=== PATIENT | male | born 1950 ===

== ENCOUNTER 2017-12-11 06:06 | Inpatient (IN) | payer MEDICARE ==
[2017-12-01 09:56] VITALS: BMI 24.9
[2017-12-11] MEDS ORDERED: Lactated Ringer's 1,000 ML IV ONE ×3 (07:20→13:57)
[2017-12-11] MEDS ORDERED: metroNIDAZOLE 500mg/100ml NS 0 ML IVPB ONE (08:04)
[2017-12-11] MEDS ORDERED: Bupivacaine 0.5% Inj(30mL) ONE (08:04)
[2017-12-11] MEDS ORDERED: Propofol 10 mg/ml Inj (20 ML) ONE (09:14)
[2017-12-11] MEDS ORDERED: Midazolam 2 MG/2 ML VIAL ONE (09:14)
[2017-12-11] MEDS ORDERED: Succinylcholine 200 mg/10 ml Inj IV ONE (09:16)
[2017-12-11] MEDS ORDERED: Neostigmine 1:1000 (1 mg/ml) Inj ONE (09:16)
[2017-12-11] MEDS ORDERED: Rocuronium 10 mg/ml (5 ml) ONE (09:16)
--- NOTE | 2017-12-11 09:23 | CP.PCM.HP ---
History of Present Illness - History of Present Illness History of Present Illness: 67 yo with adenocarcinoma of the cecum Present on Admission - Present on Admission Any Indicators Present on Admission: No History of DVT/PE: No History of Uncontrolled Diabetes: No Urinary Catheter: No Decubitus Ulcer Present: No Past Patient History - Past Medical History & Family History Past Medical History?: Yes - Past Social History Smoking Status: Former Smoker - CARDIAC Hx Cardiac Disorders: Yes Hx Hypercholesterolemia: Yes (dyslipidemia) Hx Hypertension: Yes - PULMONARY Hx Respiratory Disorders: No - NEUROLOGICAL Hx Neurological Disorder: No - HEENT Hx HEENT Problems: No Hx Cataracts: Yes (L) - RENAL Hx Chronic Kidney Disease: No - ENDOCRINE/METABOLIC Hx Endocrine Disorders: No - HEMATOLOGICAL/ONCOLOGICAL Hx Blood Disorders: Yes Hx Anemia: Yes Hx Cancer: Yes (colon) - INTEGUMENTARY Hx Dermatological Problems: No - MUSCULOSKELETAL/RHEUMATOLOGICAL Hx Musculoskeletal Disorders: No - GASTROINTESTINAL Hx Gastrointestinal Disorders: No - GENITOURINARY/GYNECOLOGICAL Hx Genitourinary Disorders: No - PSYCHIATRIC Hx Psychophysiologic Disorder: No - SURGICAL HISTORY Hx Surgeries: Yes Hx Cataract Extraction: Yes (jomar cataracts) Hx Eye Surgery: Yes Hx Herniorrhaphy: Yes (right inguinal) Other/Comment: prostate biopsy. Colonoscopy/endoscopy 11/13/17 - ANESTHESIA Hx Anesthesia: Yes Hx Anesthesia Reactions: No Hx Malignant Hyperthermia: No Has any member of the family had a problem w/ anesthesia?: No Meds Allergies/Adverse Reactions: Allergies Allergy/AdvReac Type Severity Reaction Status Date / Time No Known Allergies Allergy Verified 12/11/17 06:37 Results - Vital Signs Recent Vital Signs: Last Vital Signs Temp 98.3 F 12/11/17 07:23 Pulse 66 12/11/17 07:23 Resp 18 12/11/17 07:23 BP 107/62 12/11/17 07:23 Pulse Ox 96 12/11/17 07:23 - Labs Labs: Laboratory Results - last 24 hr 12/11/17 06:30 Blood Type O POSITIVE Antibody Screen Negative BBK History Checked No verified bt Assessment & Plan - Assessment and Plan (Free Text) Assessment: 67 yo with adenocarcinoma of the cecum medically cleared for surgery Plan: right colectomy , robotic - Date & Time Date: 12/11/17 Time: 09:24
[2017-12-11] MEDS ORDERED: Phenylephrine 10 mg/ml Inj ONE ×2 (09:50→09:51)
[2017-12-11] MEDS ORDERED: Bupivacaine 0.5% 50 ML IJ ONE (10:00)
[2017-12-11] MEDS ORDERED: Sodium Chloride 0.9% 1,000 ML IV ONE ×2 (10:10→13:57)
[2017-12-11] MEDS ORDERED: cefOXitin IV 1 gm in Dextrose 1 GM/50 ML BAG IVPB ONE (11:52)
[2017-12-11] MEDS ORDERED: Lactated Ringer's 500 ML IV ONE (13:30)
[2017-12-11] MEDS ORDERED: HYDROmorphone 0.5 mg/0.5 ml ISec IVP PRN (13:57)
[2017-12-11] MEDS ORDERED: Lactated Ringer's 1,000 ML IV SCH (14:00)
[2017-12-11] MEDS ORDERED: HYDROmorphone 0.5 mg/0.5 ml ISec ONE (14:05)
[2017-12-11] MEDS ORDERED: cefOXitin IV 1 gm in Dextrose 1 GM/50 ML BAG IVPB SCH (17:00)
[2017-12-11] MEDS: Sodium Chloride 0.9% 1,000 ML IV SCH ×3 (17:02→22:14)
[2017-12-11] MEDS: HYDROmorphone 0.5 mg/0.5 ml ISec IVP PRN (18:13)
[2017-12-11] MEDS: cefOXitin IV 1 gm in Dextrose 1 GM/50 ML BAG IVPB SCH (20:28)
[2017-12-12] MEDS: HYDROmorphone 0.5 mg/0.5 ml ISec IVP PRN ×5 (00:06→21:11)
[2017-12-12] MEDS: cefOXitin IV 1 gm in Dextrose 1 GM/50 ML BAG IVPB SCH ×3 (04:28→19:44)
[2017-12-12] MEDS: Sodium Chloride 0.9% 1,000 ML IV SCH ×2 (05:41→14:22)
--- NOTE | 2017-12-12 06:53 | CP.PCM.PN ---
Subjective - Date & Time of Evaluation Date of Evaluation: 12/12/17 Time of Evaluation: 06:35 - Subjective Subjective: General Surgery Note for Dr. Schmid Patient seen and examined at bedside. No acute event overnight. Patient is s/p robotic colectomy POD#1 for cecal mass. Patient states pain is controlled with medication. Denies fever/chills or nausea/vomiting. He has been NPO. He denies any flaus or BM. Patient is on 2L nasal cannula. Urine output was 625 cc over the last 12 hrs. Patient has no other complaints at this time. Objective - Vital Signs/Intake and Output Vital Signs (last 24 hours): Temp Pulse Resp BP Pulse Ox 98.9 F 78 18 94/60 L 94 L 12/12/17 05:00 12/12/17 05:00 12/12/17 05:00 12/12/17 05:00 12/12/17 05:00 Intake and Output: 12/11/17 12/12/17 18:59 06:59 Intake Total 3300 1500 Output Total 850 500 Balance 2450 1000 - Medications Medications: Current Medications Acetaminophen (Tylenol 325mg Tab) 650 mg PO Q6 PRN PRN Reason: Fever >100.4 F Heparin Sodium (Porcine) (Heparin) 5,000 units SC Q8 [facility] PRN Reason: Protocol Hydromorphone HCl (Dilaudid) 1 mg IVP Q4 PRN PRN Reason: Pain, severe (8-10) Last Admin: 12/12/17 05:33 Dose: 1 mg Sodium Chloride (Sodium Chloride 0.9%) 1,000 mls @ 125 mls/hr IV .Q8H [facility] Stop: 12/12/17 14:01 Last Admin: 12/12/17 05:41 Dose: 125 mls/hr Cefoxitin Sodium (Mefoxin Iv 1 Gm Duplex) 1 gm in 50 mls @ 50 mls/hr IVPB Q8H [facility] PRN Reason: Protocol Last Admin: 12/12/17 04:28 Dose: 50 mls/hr Ondansetron HCl (Zofran Inj) 4 mg IVP Q4 PRN PRN Reason: Nausea/Vomiting - Constitutional Appears: Non-toxic, No Acute Distress - Head Exam Head Exam: ATRAUMATIC, NORMOCEPHALIC - Eye Exam Eye Exam: EOMI, Normal appearance Pupil Exam: PERRL - ENT Exam ENT Exam: Mucous Membranes Moist - Respiratory Exam Respiratory Exam: NORMAL BREATHING PATTERN - Cardiovascular Exam Cardiovascular Exam: REGULAR RHYTHM - GI/Abdominal Exam GI & Abdominal Exam: Soft, Tenderness (mild near umbilicus and at incision sites ), Normal Bowel Sounds. absent: Distended, Firm, Guarding, Rigid, Rebound Additional comments: mild subcutaneous crepitus in right abdomen likely secondary to procedure surgical dressing dry and intact no evidence of bleeding - Extremities Exam Extremities Exam: Normal Capillary Refill - Back Exam Back Exam: absent: CVA tenderness (L), CVA tenderness (R) - Neurological Exam Neurological Exam: Alert, Awake, Oriented x3 - Psychiatric Exam Psychiatric exam: Normal Affect, Normal Mood - Skin Skin Exam: Dry, Intact, Normal Color, Warm Assessment and Plan - Assessment and Plan (Free Text) Assessment: 67 M s/p robotic colectomy for cecal mass POD#1 Plan: -CLD, ADAT -Continue IV fluids -IV antibiotics for full 24 hrs (DC at 20:00) -O2 via nasal cannula PRN -Pain control -Anti-emetics PRN -OOB to chair/Encourage Ambulation/Incentive Spirometer -PT/OT -Discussed with Dr. Sharmaine Sun PGY1
[2017-12-12 12:17] LABS: BASO % 0.2 % (0.0-2.0); HEMOGLOBIN 10.7 g/dL (12.0-18.0); LYMPH # 0.9 K/uL (1.0-4.3); LYMPH % 5.1 % (20.0-40.0); MEAN CORPUSCULAR HEMOGLOBIN 24.9 pg (27.0-31.0); MEAN CORPUSCULAR HGB CONC 31.9 g/dL (33.0-37.0); MEAN PLATELET VOLUME 9.2 fl (7.2-11.7); MONO # 0.7 K/uL (0.0-0.8); MONO % 3.8 % (0.0-10.0); NEUT % 90.9 % (50.0-75.0); PLATELET COUNT 205 K/uL (130-400); RBC 4.32 Mil/uL (4.40-5.90); RED CELL DISTRIBUTION WIDTH 22.2 % (11.5-14.5); WHITE BLOOD COUNT 17.7 K/uL (4.8-10.8)
[2017-12-12 12:34] LABS: ALB/GLOB RATIO 0.9 (1.0-2.1); ALBUMIN 2.9 g/dL (3.5-5.0); ALT/SGPT 24 U/L (21-72); AST/SGOT 26 U/L (17-59); BLOOD UREA NITROGEN 12 mg/dl (9-20); CALCIUM 8.4 mg/dL (8.4-10.2); GFR AFRICAN-AMERICAN > 60; GFR NON-AFRICAN AMERICAN > 60
[2017-12-12 14:23] LABS: ANISOCYTOSIS MODERATE; BANDS 7 % (0-2); LARGE PLATELETS PRESENT; LYMPHOCYTE 9 % (20-50); MONOCYTE 5 % (0-10); NEUTROPHIL 79 % (42-75); OVALOCYTES SLIGHT; PLATELET ESTIMATE NORMAL (NORMAL); POIKILOCYTOSIS SLIGHT; SCHISTOCYTES SLIGHT; TOTAL CELLS COUNTED 100
--- NOTE | 2017-12-12 14:49 | CP.PCM.CON ---
<Sebastián Brasher - Last Filed: 12/12/17 14:46> History of Present Illness - History of Present Illness History of Present Illness: HPI: 67 y/o man w/ pmh of HTN, BPH, and adenocarcinoma of the cecum seen on colonoscopy is s/p [place] (robotic) colectomy for adenocarcinoma of the cecum seen on colonoscopy 11/13/2017. Patient is POD#1. Patient tolerated the procedure well and is recovering appropriately. The patient is using incentive spirometer as directed. The patient reports pain at the surgical site relieved w/ medication. The patient denies headache, chest pain, SOB, nausea, vomiting, diarrhea, dysuria, or fever. PMD: Dr. Jason Mcknight PMH: HTN, BPH, and adenocarcinoma of the cecum seen on colonoscopy Meds: see med list Allergies: NKDA PSH: right inguinal hernia repair, bilateral cataracts Fam: denies Hx of cancer SOC: former smoker, quit >20 years ago, smoked 1-2 packs/day for 15 years, denies alcohol and drugs ROS: 12 points assessed and negative unless otherwise reported in HPI Review of Systems - Review of Systems All systems: reviewed and no additional remarkable complaints except - Constitutional Constitutional: absent: Chills, Fever, Headache - EENT Eyes: absent: Change in Vision - Cardiovascular Cardiovascular: absent: Chest Pain - Respiratory Respiratory: absent: Dyspnea - Gastrointestinal Gastrointestinal: As Per HPI, Abdominal Pain. absent: Diarrhea, Nausea, Vomiting - Genitourinary Genitourinary: absent: Dysuria - Integumentary Integumentary: absent: Rash Past Patient History - Past Medical History & Family History Past Medical History?: Yes - Past Social History Smoking Status: Former Smoker - CARDIAC Hx Cardiac Disorders: Yes Hx Hypercholesterolemia: Yes (dyslipidemia) Hx Hypertension: Yes - PULMONARY Hx Respiratory Disorders: No - NEUROLOGICAL Hx Neurological Disorder: No - HEENT Hx HEENT Problems: No Hx Cataracts: Yes (L) - RENAL Hx Chronic Kidney Disease: No - ENDOCRINE/METABOLIC Hx Endocrine Disorders: No - HEMATOLOGICAL/ONCOLOGICAL Hx Blood Disorders: Yes Hx Anemia: Yes Hx Cancer: Yes (colon) - INTEGUMENTARY Hx Dermatological Problems: No - MUSCULOSKELETAL/RHEUMATOLOGICAL Hx Musculoskeletal Disorders: No - GASTROINTESTINAL Hx Gastrointestinal Disorders: No - GENITOURINARY/GYNECOLOGICAL Hx Genitourinary Disorders: No - PSYCHIATRIC Hx Psychophysiologic Disorder: No - SURGICAL HISTORY Hx Surgeries: Yes Hx Cataract Extraction: Yes (jomar cataracts) Hx Eye Surgery: Yes Hx Herniorrhaphy: Yes (right inguinal) Other/Comment: prostate biopsy. Colonoscopy/endoscopy 11/13/17 - ANESTHESIA Hx Anesthesia: Yes Hx Anesthesia Reactions: No Hx Malignant Hyperthermia: No Has any member of the family had a problem w/ anesthesia?: No Meds Allergies/Adverse Reactions: Allergies Allergy/AdvReac Type Severity Reaction Status Date / Time No Known Allergies Allergy Verified 12/11/17 06:37 - Medications Medications: Current Medications Acetaminophen (Tylenol 325mg Tab) 650 mg PO Q6 PRN PRN Reason: Fever >100.4 F Heparin Sodium (Porcine) (Heparin) 5,000 units SC Q8 [facility] PRN Reason: Protocol Last Admin: 12/12/17 08:39 Dose: 5,000 units Hydromorphone HCl (Dilaudid) 1 mg IVP Q4 PRN PRN Reason: Pain, severe (8-10) Last Admin: 12/12/17 14:15 Dose: 1 mg Cefoxitin Sodium (Mefoxin Iv 1 Gm Duplex) 1 gm in 50 mls @ 50 mls/hr IVPB Q8H [facility] PRN Reason: Protocol Stop: 12/12/17 20:00 Last Admin: 12/12/17 14:02 Dose: 50 mls/hr Ondansetron HCl (Zofran Inj) 4 mg IVP Q4 PRN PRN Reason: Nausea/Vomiting Oxycodone/Acetaminophen (Percocet 5/325 Mg Tab) 1 tab PO Q4 PRN PRN Reason: Pain, moderate (4-7) Stop: 12/15/17 14:45 Physical Exam - Constitutional Appears: Non-toxic, No Acute Distress - Head Exam Head Exam: ATRAUMATIC, NORMAL INSPECTION, NORMOCEPHALIC - Eye Exam Eye Exam: Normal appearance - ENT Exam ENT Exam: Mucous Membranes Moist - Neck Exam Neck exam: Positive for: Full Rom. Negative for: Tenderness - Respiratory Exam Respiratory Exam: Clear to Auscultation Bilateral. absent: Accessory Muscle Use , Decreased Breath Sounds, Rales, Rhonchi, Wheezes, Respiratory Distress - Cardiovascular Exam Cardiovascular Exam: REGULAR RHYTHM. absent: Tachycardia - GI/Abdominal Exam GI & Abdominal Exam: Normal Bowel Sounds, Soft, Tenderness (at surgical sites). absent: Distended Additional comments: dressings c/d/i, no bleed - Extremities Exam Extremities exam: Negative for: calf tenderness, pedal edema, tenderness - Neurological Exam Neurological exam: Alert, Oriented x3 - Skin Skin Exam: Dry, Normal Color, Warm Results - Vital Signs Recent Vital Signs: Last Vital Signs Temp 98.3 F 12/12/17 12:00 Pulse 83 12/12/17 12:00 Resp 20 12/12/17 12:00 BP 103/63 12/12/17 12:00 Pulse Ox 93 L 12/12/17 12:00 - Labs Result Diagrams: 12/12/17 11:57 12/12/17 11:57 Labs: Laboratory Results - last 24 hr 12/12/17 12/12/17 11:57 11:57 WBC 17.7 H D RBC 4.32 L Hgb 10.7 L Hct 33.7 L MCV 78.0 L MCH 24.9 L MCHC 31.9 L RDW 22.2 H Plt Count 205 MPV 9.2 Neut % (Auto) 90.9 H Lymph % (Auto) 5.1 L [place] % (Auto) 3.8 Eos % (Auto) 0.0 Baso % (Auto) 0.2 Neut # (Auto) 16.0 H Lymph # (Auto) 0.9 L [place] # (Auto) 0.7 Eos # (Auto) 0.0 Baso # (Auto) 0.0 Neutrophils % (Manual) 79 H Band Neutrophils % 7 H Lymphocytes % (Manual) 9 L Monocytes % (Manual) 5 Platelet Estimate Normal Large Platelets Present Poikilocytosis (manual Slight Anisocytosis (manual) Moderate Ovalocytes Slight Schistocytes Slight Sodium 139 Potassium 4.4 Chloride 102 Carbon Dioxide 26 Anion Gap 15 BUN 12 Creatinine 0.9 Est GFR ( Amer) > 60 Est GFR (Non-Af Amer) > 60 Random Glucose 138 H Calcium 8.4 Total Bilirubin 0.4 AST 26 ALT 24 Alkaline Phosphatase 51 Total Protein 6.1 L Albumin 2.9 L Globulin 3.2 Albumin/Globulin Ratio 0.9 L Assessment & Plan (1) Status post robot-assisted surgical procedure Status: Acute (2) Adenocarcinoma of cecum Status: Acute (3) HTN (hypertension) Status: Chronic (4) BPH (benign prostatic hyperplasia) Status: Chronic - Assessment and Plan (Free Text) Plan: c/w present management as per surgical team afebrile, non-tachycardic, normotensive cefoxitin 1 gm IV Q8h day 2 pain management: dilaudid 1 mg IV Q4h prn tolerating liquid diet encourage incentive spirometry encourage out of bed to chair c/w PT/OT prophylactic measures: DVT Heparin 5,000 units SC Q8h monitor for acute changes <Jason Mcknight - Last Filed: 12/14/17 11:37> Meds - Medications Medications: Current Medications Acetaminophen (Tylenol 325mg Tab) 650 mg PO Q6 PRN PRN Reason: Fever >100.4 F Famotidine (Pepcid) 20 mg IVP DAILY [facility] Last Admin: 12/14/17 08:36 Dose: 20 mg Heparin Sodium (Porcine) (Heparin) 5,000 units SC Q8 [facility] PRN Reason: Protocol Last Admin: 12/14/17 08:36 Dose: 5,000 units Ondansetron HCl (Zofran Inj) 4 mg IVP Q4 PRN PRN Reason: Nausea/Vomiting Oxycodone/Acetaminophen (Percocet 5/325 Mg Tab) 1 tab PO Q4 PRN PRN Reason: Pain, moderate (4-7) Stop: 12/15/17 14:45 Last Admin: 12/12/17 18:33 Dose: 1 tab Results - Vital Signs Recent Vital Signs: Last Vital Signs Temp 98.5 F 12/14/17 07:47 Pulse 91 H 12/14/17 07:47 Resp 18 12/14/17 07:47 BP 124/78 12/14/17 07:47 Pulse Ox 94 L 12/14/17 07:47 - Labs Result Diagrams: 12/14/17 08:10 12/14/17 08:10 Labs: Laboratory Results - last 24 hr 12/14/17 12/14/17 12/14/17 08:10 08:10 10:10 WBC 16.6 H RBC 4.26 L Hgb 10.6 L Hct 33.5 L MCV 78.6 L MCH 24.8 L MCHC 31.5 L RDW 21.0 H Plt Count 216 MPV 9.3 Neut % (Auto) 90.0 H Lymph % (Auto) 4.3 L [place] % (Auto) 4.3 Eos % (Auto) 0.7 Baso % (Auto) 0.7 Neut # (Auto) 14.9 H Lymph # (Auto) 0.7 L [place] # (Auto) 0.7 Eos # (Auto) 0.1 Baso # (Auto) 0.1 Neutrophils % (Manual) 93 H Band Neutrophils % 1 Lymphocytes % (Manual) 4 L Monocytes % (Manual) 1 Eosinophils % (Manual) 1 Platelet Estimate Normal Hypochromasia (manual) Slight Anisocytosis (manual) Moderate Ovalocytes Slight Sodium 137 Potassium 3.7 Chloride 99 Carbon Dioxide 27 Anion Gap 15 BUN 11 Creatinine 0.7 L Est GFR ( Amer) > 60 Est GFR (Non-Af Amer) > 60 Random Glucose 122 H Calcium 8.6 Total Bilirubin 0.6 AST 26 ALT 24 Alkaline Phosphatase 66 Total Protein 6.2 L Albumin 2.8 L Globulin 3.5 Albumin/Globulin Ratio 0.8 L Urine Color [place] Urine Clarity Slighty-cloudy Urine pH 5.0 Ur Specific [place] 1.025 Urine Protein 100 Urine Glucose (UA) Neg Urine Ketones Trace Urine Blood Small Urine Nitrate Negative Urine Bilirubin Negative Urine Urobilinogen 0.2-1.0 Ur Leukocyte Esterase Neg Urine RBC (Auto) 10 H Urine Microscopic WBC 3 Ur Squamous Epith Cells 1 Urine Bacteria Rare Hyaline Casts 0-2 Assessment & Plan - Assessment and Plan (Free Text) Plan: I was present during evaluation and discussed with Dr Brasher re plans of care and mgt. Jason Mcknight M.D.
[2017-12-12] MEDS: Oxycodone/Acetaminophen 5/325 mg Tab PO PRN (18:33)
[2017-12-13] MEDS: HYDROmorphone 0.5 mg/0.5 ml ISec IVP PRN ×4 (02:59→20:47)
[2017-12-13] MEDS ORDERED: Bisacodyl 5mg EC Tab PO SCH (09:00)
--- NOTE | 2017-12-13 09:46 | CP.PCM.PN ---
Subjective - Date & Time of Evaluation Date of Evaluation: 12/13/17 Time of Evaluation: 09:44 - Subjective Subjective: General Surgery Progress Note for Dr. Schmid This 67M was seen and examined this AM at bedside. No acute events overnight. Patient is tolerating clears denies any nausea or vomiting. He is passing gas however he denies any BM. He is saturating <90% on 2 L nasal cannula and using his Incentive spirometer reaching 750cc. He has no new complaints at this time. Objective - Vital Signs/Intake and Output Vital Signs (last 24 hours): Temp Pulse Resp BP Pulse Ox 98.7 F 94 H 19 135/79 94 L 12/13/17 08:31 12/13/17 08:31 12/13/17 08:31 12/13/17 08:31 12/13/17 08:31 Intake and Output: 12/13/17 12/13/17 06:59 18:59 Intake Total 4775 Output Total 1750 Balance 3025 - Medications Medications: Current Medications Acetaminophen (Tylenol 325mg Tab) 650 mg PO Q6 PRN PRN Reason: Fever >100.4 F Bisacodyl (Dulcolax) 5 mg PO DAILY [facility] Last Admin: 12/13/17 08:52 Dose: 5 mg Famotidine (Pepcid) 20 mg IVP DAILY [facility] Last Admin: 12/13/17 08:44 Dose: 20 mg Heparin Sodium (Porcine) (Heparin) 5,000 units SC Q8 [facility] PRN Reason: Protocol Last Admin: 12/13/17 08:44 Dose: 5,000 units Hydromorphone HCl (Dilaudid) 1 mg IVP Q4 PRN PRN Reason: Pain, severe (8-10) Last Admin: 12/13/17 02:59 Dose: 1 mg Ondansetron HCl (Zofran Inj) 4 mg IVP Q4 PRN PRN Reason: Nausea/Vomiting Oxycodone/Acetaminophen (Percocet 5/325 Mg Tab) 1 tab PO Q4 PRN PRN Reason: Pain, moderate (4-7) Stop: 12/15/17 14:45 Last Admin: 12/12/17 18:33 Dose: 1 tab - Labs Labs: 12/12/17 11:57 12/12/17 11:57 - Constitutional Appears: Non-toxic, No Acute Distress - Head Exam Head Exam: ATRAUMATIC, NORMOCEPHALIC - Eye Exam Eye Exam: EOMI, Normal appearance - ENT Exam ENT Exam: Mucous Membranes Moist - Respiratory Exam Respiratory Exam: NORMAL BREATHING PATTERN Additional comments: Nasal Cannula in place saturating 94% on 2L - Cardiovascular Exam Cardiovascular Exam: +S1, +S2 - GI/Abdominal Exam GI & Abdominal Exam: Soft. absent: Firm, Guarding, Rigid, Tenderness Additional comments: Dressings in place with old sanguinous strike through - Neurological Exam Neurological Exam: Alert, Awake - Psychiatric Exam Psychiatric exam: Normal Affect, Normal Mood - Skin Skin Exam: Dry, Intact Assessment and Plan - Assessment and Plan (Free Text) Assessment: 67 M s/p robotic colectomy for cecal mass POD#2 Plan: -Full Liquid diet -O2 via nasal cannula PRN -Pain control -Anti-emetics PRN -OOB to chair/Encourage Ambulation/Incentive Spirometer -PT/OT -Dulcolax -D/C [place] -Discussed with Dr. Sharmaine Sommers PGY2
[2017-12-13 10:09] LABS: BASO # 0.1 K/uL (0.0-0.2); BASO % 0.5 % (0.0-2.0); EOS % 0.2 % (0.0-4.0); HEMOGLOBIN 10.1 g/dL (12.0-18.0); LYMPH % 5.3 % (20.0-40.0); MEAN CELL VOLUME 77.9 fl (80.0-94.0); MEAN CORPUSCULAR HEMOGLOBIN 24.6 pg (27.0-31.0); MEAN CORPUSCULAR HGB CONC 31.6 g/dL (33.0-37.0); MEAN PLATELET VOLUME 9.2 fl (7.2-11.7); MONO # 0.6 K/uL (0.0-0.8); MONO % 3.2 % (0.0-10.0); NEUT # 17.2 K/uL (1.8-7.0); NEUT % 90.8 % (50.0-75.0); NRBC % 0.1 % (0.0-0.0); PLATELET COUNT 182 K/uL (130-400); RBC 4.12 Mil/uL (4.40-5.90); RED CELL DISTRIBUTION WIDTH 22.2 % (11.5-14.5); WHITE BLOOD COUNT 18.9 K/uL (4.8-10.8)
[2017-12-13 10:35] LABS: ALB/GLOB RATIO 0.9 (1.0-2.1); ALBUMIN 2.8 g/dL (3.5-5.0); ALT/SGPT 28 U/L (21-72); AST/SGOT 23 U/L (17-59); BLOOD UREA NITROGEN 10 mg/dl (9-20); CALCIUM 8.3 mg/dL (8.4-10.2); GFR AFRICAN-AMERICAN > 60; GFR NON-AFRICAN AMERICAN > 60
[2017-12-13] MEDS ORDERED: Chlorhexidine Gluconate 1 APPL/PKT TP ONE (11:31)
[2017-12-13 11:33] LABS: ANISOCYTOSIS MODERATE; BANDS 5 % (0-2); BASOPHIL 1 % (0-2); EOSINOPHIL 1 % (0-7); HYPOCHROMIC SLIGHT; LYMPHOCYTE 5 % (20-50); MONOCYTE 2 % (0-10); NEUTROPHIL 85 % (42-75); PLATELET ESTIMATE NORMAL (NORMAL); REACTIVE LYMPHOCYTES 1 % (0-0); TOTAL CELLS COUNTED 100
[2017-12-13 11:34] LABS: OVALOCYTES SLIGHT; SCHISTOCYTES SLIGHT; TEARDROP CELLS SLIGHT; TOXIC GRANULATION PRESENT
[2017-12-14] MEDS: HYDROmorphone 0.5 mg/0.5 ml ISec IVP PRN ×2 (00:59→06:31)
--- NOTE | 2017-12-14 08:47 | CP.PCM.PN ---
Subjective - Date & Time of Evaluation Date of Evaluation: 12/14/17 Time of Evaluation: 08:45 - Subjective Subjective: SURGERY NOTE FOR DR. ARENAS 67M seen and examined at bedside. Patient is doing well. Post-op pain is well controlled, he is tolerating regular diet, denies nausea, vomiting. Admits to passing gas and having multiple bowel movements. He denies fevers. He has been using incentive spirometer and ambulating. Objective - Vital Signs/Intake and Output Vital Signs (last 24 hours): Temp Pulse Resp BP Pulse Ox 98.5 F 91 H 18 124/78 94 L 12/14/17 07:47 12/14/17 07:47 12/14/17 07:47 12/14/17 07:47 12/14/17 07:47 Intake and Output: 12/14/17 12/14/17 06:59 18:59 Output Total 400 Balance -400 - Medications Medications: Current Medications Acetaminophen (Tylenol 325mg Tab) 650 mg PO Q6 PRN PRN Reason: Fever >100.4 F Famotidine (Pepcid) 20 mg IVP DAILY [facility] Last Admin: 12/14/17 08:36 Dose: 20 mg Heparin Sodium (Porcine) (Heparin) 5,000 units SC Q8 [facility] PRN Reason: Protocol Last Admin: 12/14/17 08:36 Dose: 5,000 units Hydromorphone HCl (Dilaudid) 1 mg IVP Q4 PRN PRN Reason: Pain, severe (8-10) Last Admin: 12/14/17 06:31 Dose: 1 mg Ondansetron HCl (Zofran Inj) 4 mg IVP Q4 PRN PRN Reason: Nausea/Vomiting Oxycodone/Acetaminophen (Percocet 5/325 Mg Tab) 1 tab PO Q4 PRN PRN Reason: Pain, moderate (4-7) Stop: 12/15/17 14:45 Last Admin: 12/12/17 18:33 Dose: 1 tab - Labs Labs: 12/13/17 09:30 12/13/17 09:30 - Constitutional Appears: Well, Non-toxic, No Acute Distress - Respiratory Exam Respiratory Exam: Clear to Ausculation Bilateral, NORMAL BREATHING PATTERN - Cardiovascular Exam Cardiovascular Exam: REGULAR RHYTHM, +S1, +S2 - GI/Abdominal Exam GI & Abdominal Exam: Soft. absent: Distended, Firm, Guarding, Rigid, Tenderness , Rebound Additional comments: incisions CDI Staple in place - Extremities Exam Extremities Exam: absent: Pedal Edema, Tenderness - Neurological Exam Neurological Exam: Alert, Awake - Skin Skin Exam: Dry, Intact, Normal Color, Warm Assessment and Plan - Assessment and Plan (Free Text) Assessment: 67M s/p robotic colectomy with anastomosis POD3 Plan: Await CBC Monitor WBC f/u CXR f/u UA Possible DC today is lab value improved Discussed with Dr. Sharmaine Olmstead, PGY2
[2017-12-14 09:13] LABS: BASO # 0.1 K/uL (0.0-0.2); BASO % 0.7 % (0.0-2.0); EOS # 0.1 K/uL (0.0-0.7); EOS % 0.7 % (0.0-4.0); HEMOGLOBIN 10.6 g/dL (12.0-18.0); LYMPH # 0.7 K/uL (1.0-4.3); LYMPH % 4.3 % (20.0-40.0); MEAN CELL VOLUME 78.6 fl (80.0-94.0); MEAN CORPUSCULAR HEMOGLOBIN 24.8 pg (27.0-31.0); MEAN CORPUSCULAR HGB CONC 31.5 g/dL (33.0-37.0); MEAN PLATELET VOLUME 9.3 fl (7.2-11.7); MONO # 0.7 K/uL (0.0-0.8); MONO % 4.3 % (0.0-10.0); NEUT # 14.9 K/uL (1.8-7.0); PLATELET COUNT 216 K/uL (130-400); RBC 4.26 Mil/uL (4.40-5.90); WHITE BLOOD COUNT 16.6 K/uL (4.8-10.8)
[2017-12-14 09:18] LABS: ALB/GLOB RATIO 0.8 (1.0-2.1); ALBUMIN 2.8 g/dL (3.5-5.0); ALT/SGPT 24 U/L (21-72); AST/SGOT 26 U/L (17-59); BLOOD UREA NITROGEN 11 mg/dl (9-20); CALCIUM 8.6 mg/dL (8.4-10.2); GFR AFRICAN-AMERICAN > 60; GFR NON-AFRICAN AMERICAN > 60
--- NOTE | 2017-12-14 10:23 | RAD ---
HISTORY: elevated white count COMPARISON: 12/01/2017 FINDINGS: LUNGS: There are low lung volumes. There is right basilar atelectasis. There is airspace disease in the left lower lobe. PLEURA: There are small pleural effusions, no pneumothorax apparent. CARDIOVASCULAR: Normal. OSSEOUS STRUCTURES: No significant abnormalities. VISUALIZED UPPER ABDOMEN: Normal. OTHER FINDINGS: There is dilatation of the small bowel loops. There is also lucency under the right hemidiaphragm. IMPRESSION: Low lung volumes may be related to poor inspiratory effort. Airspace disease in the lower lobes, worse on the left. Superimposed pneumonia cannot be excluded. Suspect small pleural effusions. Dilatation of the small bowel, small bowel obstruction is a consideration. Lucency under the right hemidiaphragm may represent interposed colon however pneumoperitoneum cannot be entirely excluded. If clinically indicated, CT scan of the abdomen and pelvis may be performed for further evaluation.
[2017-12-14 10:59] LABS: URINE BACTERIA RARE (<OCC); URINE BILIRUBIN NEGATIVE (NEGATIVE); URINE BLOOD SMALL (NEGATIVE); URINE CLARITY SLIGHTY-CLOUDY (Clear); URINE COLOR AMBER (YELLOW); URINE GLUCOSE (UA) NEG (Normal); URINE HYALINE CAST 0-2 /hpf (0-2); URINE LEUKOCYTE ESTERASE NEG Leu/uL (Negative); URINE PROTEIN 100 mg/dL (NEGATIVE); URINE UROBILINOGEN 0.2-1.0 mg/dL (0.2-1.0)
[2017-12-14 11:00] LABS: SQUAMOUS EPITHIAL 1 /hpf (0-5)
[2017-12-14 11:26] LABS: BANDS 1 % (0-2); EOSINOPHIL 1 % (0-7); LYMPHOCYTE 4 % (20-50); MONOCYTE 1 % (0-10); NEUTROPHIL 93 % (42-75); TOTAL CELLS COUNTED 100
[2017-12-14 11:27] LABS: ANISOCYTOSIS MODERATE; HYPOCHROMIC SLIGHT; OVALOCYTES SLIGHT; PLATELET ESTIMATE NORMAL (NORMAL)
--- NOTE | 2017-12-14 11:42 | CP.PCM.PN ---
Subjective - Date & Time of Evaluation Date of Evaluation: 12/13/17 Time of Evaluation: 09:30 - Subjective Subjective: Patient has very poor appetite. Noted episodes of hypoxemia. Has no chest pain or SOB. Objective - Vital Signs/Intake and Output Vital Signs (last 24 hours): Temp Pulse Resp BP Pulse Ox 98.5 F 91 H 18 124/78 94 L 12/14/17 07:47 12/14/17 07:47 12/14/17 07:47 12/14/17 07:47 12/14/17 07:47 Intake and Output: 12/14/17 12/14/17 06:59 18:59 Output Total 400 Balance -400 - Medications Medications: Current Medications Acetaminophen (Tylenol 325mg Tab) 650 mg PO Q6 PRN PRN Reason: Fever >100.4 F Famotidine (Pepcid) 20 mg IVP DAILY [facility] Last Admin: 12/14/17 08:36 Dose: 20 mg Heparin Sodium (Porcine) (Heparin) 5,000 units SC Q8 [facility] PRN Reason: Protocol Last Admin: 12/14/17 08:36 Dose: 5,000 units Ondansetron HCl (Zofran Inj) 4 mg IVP Q4 PRN PRN Reason: Nausea/Vomiting Oxycodone/Acetaminophen (Percocet 5/325 Mg Tab) 1 tab PO Q4 PRN PRN Reason: Pain, moderate (4-7) Stop: 12/15/17 14:45 Last Admin: 12/12/17 18:33 Dose: 1 tab - Labs Labs: 12/14/17 08:10 12/14/17 08:10 - Head Exam Head Exam: NORMAL INSPECTION - Eye Exam Eye Exam: Normal appearance - ENT Exam ENT Exam: Mucous Membranes Moist - Respiratory Exam Respiratory Exam: Decreased Breath Sounds - Cardiovascular Exam Cardiovascular Exam: REGULAR RHYTHM - GI/Abdominal Exam GI & Abdominal Exam: Normal Bowel Sounds - Neurological Exam Neurological Exam: Awake, Oriented x3 - Psychiatric Exam Psychiatric exam: Depressed Assessment and Plan (1) Hypoxemia Status: Acute (2) Status post colectomy Status: Acute (3) Adenocarcinoma of cecum Status: Acute - Assessment and Plan (Free Text) Plan: check CXR cont meds cont tx Phys therapy oxygen
--- NOTE | 2017-12-14 11:47 | CP.PCM.PN ---
Subjective - Date & Time of Evaluation Date of Evaluation: 12/14/17 Time of Evaluation: 11:44 - Subjective Subjective: Has very poor appetite Has no chest pain or SOB Noted hypoxemia CXR showed possible infiltrate? Noted elevated WBC Xray showed small bowel dilatation Objective - Vital Signs/Intake and Output Vital Signs (last 24 hours): Temp Pulse Resp BP Pulse Ox 98.5 F 91 H 18 124/78 94 L 12/14/17 07:47 12/14/17 07:47 12/14/17 07:47 12/14/17 07:47 12/14/17 07:47 Intake and Output: 12/14/17 12/14/17 06:59 18:59 Output Total 400 Balance -400 - Medications Medications: Current Medications Acetaminophen (Tylenol 325mg Tab) 650 mg PO Q6 PRN PRN Reason: Fever >100.4 F Famotidine (Pepcid) 20 mg IVP DAILY [facility] Last Admin: 12/14/17 08:36 Dose: 20 mg Heparin Sodium (Porcine) (Heparin) 5,000 units SC Q8 [facility] PRN Reason: Protocol Last Admin: 12/14/17 08:36 Dose: 5,000 units Ondansetron HCl (Zofran Inj) 4 mg IVP Q4 PRN PRN Reason: Nausea/Vomiting Oxycodone/Acetaminophen (Percocet 5/325 Mg Tab) 1 tab PO Q4 PRN PRN Reason: Pain, moderate (4-7) Stop: 12/15/17 14:45 Last Admin: 12/12/17 18:33 Dose: 1 tab - Labs Labs: 12/14/17 08:10 12/14/17 08:10 - Head Exam Head Exam: NORMAL INSPECTION - Eye Exam Eye Exam: Normal appearance - ENT Exam ENT Exam: Mucous Membranes Moist - Respiratory Exam Respiratory Exam: Decreased Breath Sounds - Cardiovascular Exam Cardiovascular Exam: REGULAR RHYTHM - GI/Abdominal Exam GI & Abdominal Exam: Normal Bowel Sounds - Neurological Exam Neurological Exam: Awake, Oriented x3 Assessment and Plan (1) Hypoxemia Status: Acute (2) Status post colectomy Status: Acute (3) Adenocarcinoma of cecum Status: Acute - Assessment and Plan (Free Text) Plan: Hold discharge start IV antibiotics repeat CXR and plain ab in am DC oxygen and check abg's pulse ox on room air
[2017-12-14] MEDS ORDERED: Albuterol-Ipratrop 3 mg / 0.5 (3 ml) UD INH PRN (11:50)
[2017-12-14 12:51] LABS: ABG ALLEN TEST YES; ARTERIAL BLOOD GAS HCO3 26.3 mmol/L (21-28); ARTERIAL BLOOD GAS HEMOGLOBIN 10.6 g/dL (11.7-17.4); ARTERIAL BLOOD GAS O2 CAPACITY 14.4 mL/dL (16-24); ARTERIAL BLOOD GAS O2 SAT 96.9 % (95-98); ARTERIAL BLOOD GAS PCO2 36 mm/Hg (35-45); ARTERIAL BLOOD GAS PH 7.46 (7.35-7.45); ARTERIAL BLOOD GAS PO2 66 mm/Hg (80-100); ARTERIAL BLOOD GAS TCO2 26.7 mmol/L (22-28)
--- NOTE | 2017-12-14 12:56 | PCM.OP ---
Operative Report - Operative Report Date of Surgery/Procedure: 12/04/17 Time of Surgery/Procedure: 08:00 Surgeon: Dr. Anthony Schmid Potable Water Treatment Operator: Dr. Les Martin Anesthesia/Sedation: Dr. Goodwin/general Pre-Operative Diagnosis: Colon cancer cecum Post-Operative Diagnosis: colon cancer cecum Indication for Surgery: colon cancer Operative Findings: right colon cancer Procedure/Operation Description: 1-Right colectomy with deep mesenteric lymph nodes. Brief History: This is a 67 year old man referred by Dr. Joe Thomas and Dr. Jason Hutchison with recent discovery of right colon cance by colonoscopy and biospy. He now undergoes robotic colectomy. Description of the Procedure: The patient was taken to the operating room and after induction of geneeral endotracheal anesthesia he was prepped and drapped in the usual sterile manner. An infraumbilical incision was made with a 15 astrid and the peritomeum was entered using an open technique. The first robotic trocar was palced and adeqaute penumoperitomeum was achieved. The other ports were placed in the usual position under videoscopic guidance. The patinet was palced in modified Trendleberg. The lesion was immediately noted emanating from the cecum. It was larger than expected from the report. The right colon was mobilized from the right gutter with electrocautery and retracted anteriorly. The mesnetery of the colon was dissected to the level of the middle colic vessels distally and to the distal jejunum approximately 12 cm from the ileocecal valve. The bowel was transected distally and proximally with RAFFY staplers. The mesentery was then dissected to the level of the right colic artery and to the level of the middle colic artery with particular attention to preserving this last structure. The specimen was then completely detached including the lymph nodes of the deep mesentery. Reconstruction was initiated with a RAFFY stpaler and the rent was closed in two layers with 3-0 vicryl for both the mucosa and serosa. The mesentery was clsoed with continuous 3-0 vicryl. All counts were correct and hemostasis was deemed adeqaute. The specimen was grasped with a bowel graspeer and pneumoperitoneum was released. All trocars were removed. The umbilical port site was opened furhter with a 15 blade and the specimen was removed, appropriately marked and sent to pathology separately. the umbilical port site was closed with 2-0 PDS. All skin trocar sites were clsoed with 4-0 monocryl. Clean dressing were applied. The patient was awakened, extubated and brought to the recovery room in stable condition. Estimated Blood Loss: 100 cc Complications: none Specimen: right colon with deep mesenteric lymph nodes Discharge & Condition: stable
--- NOTE | 2017-12-14 14:41 | CP.PCM.CON ---
History of Present Illness - History of Present Illness History of Present Illness: Pulmonary consult for a 67 y/o m, Hx of HTN, BPH, Hx of heavy smoker 1-2 PPD x 20 yrs, quit 15 yrs ago. 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 Post-Op, Pt was maintained in NC O2 2lpm/Sat 95%. Worsening symptoms: On 12/12/17, Pt was encouraged to use incentive spirometry able to increase to 750, but there after Sat drooped to to 88% and went back to NC 2 L/M. No aggravated factor. Pt denied: SOB, TOMPKINS, cough, chest congestion, Fever, chills, CP, dizziness, palpitations, n/v/d, sick contact, recent travel out of [facility]. CXR : Air space disease in the lower lobes, worse in the Left. Superimpose PNA cannot be excluded. Possible small pleural effusions. Review of Systems - Review of Systems All systems: reviewed and no additional remarkable complaints except (HPI) Past Patient History - Past Medical History & Family History Past Medical History?: Yes Pertinent Family History: Unknown - Past Social History Smoking Status: Former Smoker Alcohol: None Drugs: Denies Home Situation {Lives}: With Family - CARDIAC Hx Cardiac Disorders: Yes Hx Hypercholesterolemia: Yes (dyslipidemia) Hx Hypertension: Yes - PULMONARY Hx Respiratory Disorders: No - NEUROLOGICAL Hx Neurological Disorder: No - HEENT Hx HEENT Problems: Yes Hx Cataracts: Yes (L) - RENAL Hx Chronic Kidney Disease: No - ENDOCRINE/METABOLIC Hx Endocrine Disorders: No - HEMATOLOGICAL/ONCOLOGICAL Hx Blood Disorders: Yes Hx Anemia: Yes Hx Cancer: Yes (colon) - INTEGUMENTARY Hx Dermatological Problems: No - MUSCULOSKELETAL/RHEUMATOLOGICAL Hx Musculoskeletal Disorders: No - GASTROINTESTINAL Hx Gastrointestinal Disorders: No - GENITOURINARY/GYNECOLOGICAL Hx Genitourinary Disorders: No - PSYCHIATRIC Hx Psychophysiologic Disorder: No - SURGICAL HISTORY Hx Surgeries: Yes Hx Cataract Extraction: Yes (jomar cataracts) Hx Eye Surgery: Yes Hx Herniorrhaphy: Yes (right inguinal) Other/Comment: prostate biopsy. Colonoscopy/endoscopy 11/13/17 - ANESTHESIA Hx Anesthesia: Yes Hx Anesthesia Reactions: No Hx Malignant Hyperthermia: No Has any member of the family had a problem w/ anesthesia?: No Meds Home Medications: Home Medication List Medication Instructions Recorded Confirmed Type Amoxicillin/Clavulanate [Augmentin 1 tab PO BID #10 tab 12/15/17 Rx 875 MG-125 MG] Cyproheptadine [Periactin] 2 mg PO DAILY #30 tab 12/15/17 Rx Allergies/Adverse Reactions: Allergies Allergy/AdvReac Type Severity Reaction Status Date / Time No Known Allergies Allergy Verified 12/11/17 06:37 - Medications Medications: Current Medications Acetaminophen (Tylenol 325mg Tab) 650 mg PO Q6 PRN PRN Reason: Fever >100.4 F Albuterol/Ipratropium (Duoneb 3 Mg/0.5 Mg (3 Ml) Ud) 3 ml INH RQ6 ROXANNA Famotidine (Pepcid) 20 mg IVP DAILY [facility] Last Admin: 12/14/17 08:36 Dose: 20 mg Heparin Sodium (Porcine) (Heparin) 5,000 units SC Q8 ROXANNA PRN Reason: Protocol Last Admin: 12/14/17 08:36 Dose: 5,000 units Piperacillin Sod/Tazobactam (Sod 3.375 gm/ Sodium Chloride) 100 mls @ 100 mls/ hr IVPB Q6 ROXANNA PRN Reason: Protocol Megestrol Acetate (Megace) 800 mg PO DAILY [facility] Ondansetron HCl (Zofran Inj) 4 mg IVP Q4 PRN PRN Reason: Nausea/Vomiting Oxycodone/Acetaminophen (Percocet 5/325 Mg Tab) 1 tab PO Q4 PRN PRN Reason: Pain, moderate (4-7) Stop: 12/15/17 14:45 Last Admin: 12/12/17 18:33 Dose: 1 tab Physical Exam - Constitutional Appears: No Acute Distress - Head Exam Head Exam: NORMAL INSPECTION - Eye Exam Eye Exam: PERRL - ENT Exam ENT Exam: Normal Exam - Neck Exam Neck exam: Positive for: Normal Inspection - Respiratory Exam Respiratory Exam: Clear to Auscultation Bilateral - Cardiovascular Exam Cardiovascular Exam: REGULAR RHYTHM - GI/Abdominal Exam GI & Abdominal Exam: Normal Bowel Sounds, Soft Additional comments: Midline surgical site with ninfa. - Extremities Exam Extremities exam: Positive for: normal inspection - Back Exam Back exam: NORMAL INSPECTION - Neurological Exam Neurological exam: Alert, Oriented x3 - Psychiatric Exam Psychiatric exam: Normal Mood - Skin Skin Exam: Warm Results - Vital Signs Recent Vital Signs: Last Vital Signs Temp 98.5 F 12/14/17 07:47 Pulse 91 H 12/14/17 07:47 Resp 18 12/14/17 07:47 BP 124/78 12/14/17 07:47 Pulse Ox 94 L 12/14/17 07:47 reviewed Michael - Labs Result Diagrams: 12/15/17 06:05 12/15/17 06:05 Labs: Laboratory Results - last 24 hr 12/14/17 12/14/17 12/14/17 08:10 08:10 10:10 WBC 16.6 H RBC 4.26 L Hgb 10.6 L Hct 33.5 L MCV 78.6 L MCH 24.8 L MCHC 31.5 L RDW 21.0 H Plt Count 216 MPV 9.3 Neut % (Auto) 90.0 H Lymph % (Auto) 4.3 L [place] % (Auto) 4.3 Eos % (Auto) 0.7 Baso % (Auto) 0.7 Neut # (Auto) 14.9 H Lymph # (Auto) 0.7 L [place] # (Auto) 0.7 Eos # (Auto) 0.1 Baso # (Auto) 0.1 Neutrophils % (Manual) 93 H Band Neutrophils % 1 Lymphocytes % (Manual) 4 L Monocytes % (Manual) 1 Eosinophils % (Manual) 1 Platelet Estimate Normal Hypochromasia (manual) Slight Anisocytosis (manual) Moderate Ovalocytes Slight pCO2 pO2 HCO3 ABG pH ABG Total CO2 ABG O2 Saturation ABG O2 Content ABG Base Excess ABG Hemoglobin ABG Carboxyhemoglobin POC ABG HHb (Measured) ABG Methemoglobin ABG O2 Capacity Stephen Test A-a O2 Difference Hgb O2 Saturation Vent Mode FiO2 Sodium 137 Potassium 3.7 Chloride 99 Carbon Dioxide 27 Anion Gap 15 BUN 11 Creatinine 0.7 L Est GFR ( Amer) > 60 Est GFR (Non-Af Amer) > 60 Random Glucose 122 H Calcium 8.6 Total Bilirubin 0.6 AST 26 ALT 24 Alkaline Phosphatase 66 Total Protein 6.2 L Albumin 2.8 L Globulin 3.5 Albumin/Globulin Ratio 0.8 L Urine Color Lucia Urine Clarity Slighty-cloudy Urine pH 5.0 Ur Specific [place] 1.025 Urine Protein 100 Urine Glucose (UA) Neg Urine Ketones Trace Urine Blood Small Urine Nitrate Negative Urine Bilirubin Negative Urine Urobilinogen 0.2-1.0 Ur Leukocyte Esterase Neg Urine RBC (Auto) 10 H Urine Microscopic WBC 3 Ur Squamous Epith Cells 1 Urine Bacteria Rare Hyaline Casts 0-2 12/14/17 11:49 WBC RBC Hgb Hct MCV MCH MCHC RDW Plt Count MPV Neut % (Auto) Lymph % (Auto) [place] % (Auto) Eos % (Auto) Baso % (Auto) Neut # (Auto) Lymph # (Auto) [place] # (Auto) Eos # (Auto) Baso # (Auto) Neutrophils % (Manual) Band Neutrophils % Lymphocytes % (Manual) Monocytes % (Manual) Eosinophils % (Manual) Platelet Estimate Hypochromasia (manual) Anisocytosis (manual) Ovalocytes pCO2 36 pO2 66 L HCO3 26.3 ABG pH 7.46 H ABG Total CO2 26.7 ABG O2 Saturation 96.9 ABG O2 Content 14.0 L ABG Base Excess 1.8 ABG Hemoglobin 10.6 L ABG Carboxyhemoglobin 1.9 H POC ABG HHb (Measured) 3.0 ABG Methemoglobin 1.7 ABG O2 Capacity 14.4 L Stephen Test Yes A-a O2 Difference 39.0 Hgb O2 Saturation 93.4 L Vent Mode Ra FiO2 21.0 Sodium Potassium Chloride Carbon Dioxide Anion Gap BUN Creatinine Est GFR ( Amer) Est GFR (Non-Af Amer) Random Glucose Calcium Total Bilirubin AST ALT Alkaline Phosphatase Total Protein Albumin Globulin Albumin/Globulin Ratio Urine Color Urine Clarity Urine pH Ur Specific [place] Urine Protein Urine Glucose (UA) Urine Ketones Urine Blood Urine Nitrate Urine Bilirubin Urine Urobilinogen Ur Leukocyte Esterase Urine RBC (Auto) Urine Microscopic WBC Ur Squamous Epith Cells Urine Bacteria Hyaline Casts reviewed J.P. - Imaging and Cardiology Chest x-ray Status: Report reviewed by me (HanhP.) Assessment & Plan (1) PNA (pneumonia) Status: Acute Priority: High - Assessment and Plan (Free Text) Plan: F/U CXR in AM, Reuben Ugalde. - Date & Time Date: 12/14/17 Time: 10:00
[2017-12-14] MEDS: Megestrol Acetate 40 mg/ml Cup PO SCH (16:46)
[2017-12-14] MEDS: Piperacillin/Tazobact 3.375 GM in Sodium Chloride 0.9% 100 ML IVPB SCH ×2 (16:48→21:25)
[2017-12-14] MEDS: Albuterol-Ipratrop 3 mg / 0.5 (3 ml) UD INH SCH (20:30)
[2017-12-15] MEDS: Oxycodone/Acetaminophen 5/325 mg Tab PO PRN (01:00)
[2017-12-15] MEDS: Albuterol-Ipratrop 3 mg / 0.5 (3 ml) UD INH SCH ×3 (01:18→13:32)
[2017-12-15] MEDS: Piperacillin/Tazobact 3.375 GM in Sodium Chloride 0.9% 100 ML IVPB SCH ×2 (04:05→09:16)
[2017-12-15 06:24] LABS: BASO % 0.4 % (0.0-2.0); EOS # 0.3 K/uL (0.0-0.7); EOS % 2.9 % (0.0-4.0); HEMOGLOBIN 9.2 g/dL (12.0-18.0); LYMPH # 0.9 K/uL (1.0-4.3); LYMPH % 9.3 % (20.0-40.0); MEAN CELL VOLUME 77.3 fl (80.0-94.0); MEAN CORPUSCULAR HGB CONC 32.4 g/dL (33.0-37.0); MEAN PLATELET VOLUME 8.8 fl (7.2-11.7); MONO # 0.6 K/uL (0.0-0.8); MONO % 6.5 % (0.0-10.0); NEUT % 80.9 % (50.0-75.0); RBC 3.67 Mil/uL (4.40-5.90); RED CELL DISTRIBUTION WIDTH 21.2 % (11.5-14.5); WHITE BLOOD COUNT 9.9 K/uL (4.8-10.8)
[2017-12-15 06:48] LABS: ALB/GLOB RATIO 0.8 (1.0-2.1); ALBUMIN 2.6 g/dL (3.5-5.0); ALT/SGPT 32 U/L (21-72); AST/SGOT 22 U/L (17-59); BLOOD UREA NITROGEN 14 mg/dl (9-20); CALCIUM 8.4 mg/dL (8.4-10.2); GFR AFRICAN-AMERICAN > 60; GFR NON-AFRICAN AMERICAN > 60
[2017-12-15 07:41] VITALS: BP 144/77; PULSE 68; RESP 18; TEMP 98.1; O2SAT 94
--- NOTE | 2017-12-15 08:10 | CP.PCM.DIS ---
Provider - Provider Date of Admission: 12/11/17 14:18 Attending physician: Anthony Schmid MD Primary care physician: Jason Mcknight MD Consults: Medicine: Dr. Mcknight Pulmonary: Dr. Holland Time Spent in preparation of Discharge (in minutes): 30 Diagnosis - Discharge Diagnosis (1) Status post colectomy Status: Acute (2) Status post robot-assisted surgical procedure Status: Acute (3) Adenocarcinoma of cecum Status: Acute Comment: s/p robotic colectomy (4) BPH (benign prostatic hyperplasia) Status: Chronic (5) HTN (hypertension) Status: Chronic (6) Hypoxemia Status: Acute Hospital Course - Lab Results Lab Results: Most Recent Lab Values WBC 9.9 K/uL (4.8-10.8) 12/15/17 06:05 RBC 3.67 Mil/uL (4.40-5.90) L 12/15/17 06:05 Hgb 9.2 g/dL (12.0-18.0) L 12/15/17 06:05 Hct 28.4 % (35.0-51.0) L 12/15/17 06:05 MCV 77.3 fl (80.0-94.0) L 12/15/17 06:05 MCH 25.0 pg (27.0-31.0) L 12/15/17 06:05 MCHC 32.4 g/dL (33.0-37.0) L 12/15/17 06:05 RDW 21.2 % (11.5-14.5) H 12/15/17 06:05 Plt Count 202 K/uL (130-400) 12/15/17 06:05 MPV 8.8 fl (7.2-11.7) 12/15/17 06:05 Neut % (Auto) 80.9 % (50.0-75.0) H 12/15/17 06:05 Lymph % (Auto) 9.3 % (20.0-40.0) L 12/15/17 06:05 [place] % (Auto) 6.5 % (0.0-10.0) 12/15/17 06:05 Eos % (Auto) 2.9 % (0.0-4.0) 12/15/17 06:05 Baso % (Auto) 0.4 % (0.0-2.0) 12/15/17 06:05 Neut # (Auto) 8.0 K/uL (1.8-7.0) H 12/15/17 06:05 Lymph # (Auto) 0.9 K/uL (1.0-4.3) L 12/15/17 06:05 [place] # (Auto) 0.6 K/uL (0.0-0.8) 12/15/17 06:05 Eos # (Auto) 0.3 K/uL (0.0-0.7) 12/15/17 06:05 Baso # (Auto) 0.0 K/uL (0.0-0.2) 12/15/17 06:05 Neutrophils % (Manual) 93 % (42-75) H 12/14/17 08:10 Band Neutrophils % 1 % (0-2) 12/14/17 08:10 Lymphocytes % (Manual) 4 % (20-50) L 12/14/17 08:10 Reactive Lymphs % 1 % (0-0) H 12/13/17 09:30 Monocytes % (Manual) 1 % (0-10) 12/14/17 08:10 Eosinophils % (Manual) 1 % (0-7) 12/14/17 08:10 Basophils % (Manual) 1 % (0-2) 12/13/17 09:30 Toxic Granulation Present 12/13/17 09:30 Platelet Estimate Normal (NORMAL) 12/14/17 08:10 Large Platelets Present 12/12/17 11:57 Hypochromasia (manual) Slight 12/14/17 08:10 Poikilocytosis (manual Slight 12/12/17 11:57 Anisocytosis (manual) Moderate 12/14/17 08:10 Tear Drop Cells Slight 12/13/17 09:30 Ovalocytes Slight 12/14/17 08:10 Schistocytes Slight 12/13/17 09:30 pCO2 36 mm/Hg (35-45) 12/14/17 11:49 pO2 66 mm/Hg (80-100) L 12/14/17 11:49 HCO3 26.3 mmol/L (21-28) 12/14/17 11:49 ABG pH 7.46 (7.35-7.45) H 12/14/17 11:49 ABG Total CO2 26.7 mmol/L (22-28) 12/14/17 11:49 ABG O2 Saturation 96.9 % (95-98) 12/14/17 11:49 ABG O2 Content 14.0 ML/dL (15-23) L 12/14/17 11:49 ABG Base Excess 1.8 mmol/L (-2.0-3.0) 12/14/17 11:49 ABG Hemoglobin 10.6 g/dL (11.7-17.4) L 12/14/17 11:49 ABG Carboxyhemoglobin 1.9 % (0.5-1.5) H 12/14/17 11:49 POC ABG HHb (Measured) 3.0 % (0.0-5.0) 12/14/17 11:49 ABG Methemoglobin 1.7 % (0.0-3.0) 12/14/17 11:49 ABG O2 Capacity 14.4 mL/dL (16-24) L 12/14/17 11:49 Stephen Test Yes 12/14/17 11:49 A-a O2 Difference 39.0 mm/Hg 12/14/17 11:49 Hgb O2 Saturation 93.4 % (95.0-98.0) L 12/14/17 11:49 Vent Mode Ra 12/14/17 11:49 FiO2 21.0 % 12/14/17 11:49 Sodium 139 mmol/l (132-148) 12/15/17 06:05 Potassium 3.6 MMOL/L (3.6-5.0) 12/15/17 06:05 Chloride 100 mmol/L (98-107) 12/15/17 06:05 Carbon Dioxide 28 mmol/L (22-30) 12/15/17 06:05 Anion Gap 15 (10-20) 12/15/17 06:05 BUN 14 mg/dl (9-20) 12/15/17 06:05 Creatinine 0.8 mg/dl (0.8-1.5) 12/15/17 06:05 Est GFR ( Amer) > 60 12/15/17 06:05 Est GFR (Non-Af Amer) > 60 12/15/17 06:05 Random Glucose 123 mg/dL (75-110) H 12/15/17 06:05 Calcium 8.4 mg/dL (8.4-10.2) 12/15/17 06:05 Phosphorus 1.4 mg/dl (2.5-4.5) L 12/13/17 09:30 Magnesium 1.6 MG/DL (1.6-2.3) 12/13/17 09:30 Total Bilirubin 0.4 mg/dl (0.2-1.3) 12/15/17 06:05 AST 22 U/L (17-59) 12/15/17 06:05 ALT 32 U/L (21-72) 12/15/17 06:05 Alkaline Phosphatase 65 U/L (38-126) 12/15/17 06:05 Total Protein 5.8 G/DL (6.3-8.2) L 12/15/17 06:05 Albumin 2.6 g/dL (3.5-5.0) L 12/15/17 06:05 Globulin 3.2 gm/dL (2.2-3.9) 12/15/17 06:05 Albumin/Globulin Ratio 0.8 (1.0-2.1) L 12/15/17 06:05 Urine Color Lucia (YELLOW) 12/14/17 10:10 Urine Clarity Slighty-cloudy (Clear) 12/14/17 10:10 Urine pH 5.0 (5.0-8.0) 12/14/17 10:10 Ur Specific [place] 1.025 (1.003-1.030) 12/14/17 10:10 Urine Protein 100 mg/dL (NEGATIVE) 12/14/17 10:10 Urine Glucose (UA) Neg mg/dL (Normal) 12/14/17 10:10 Urine Ketones Trace mg/dL (NEGATIVE) 12/14/17 10:10 Urine Blood Small (NEGATIVE) 12/14/17 10:10 Urine Nitrate Negative (NEGATIVE) 12/14/17 10:10 Urine Bilirubin Negative (NEGATIVE) 12/14/17 10:10 Urine Urobilinogen 0.2-1.0 mg/dL (0.2-1.0) 12/14/17 10:10 Ur Leukocyte Esterase Neg Bri/uL (Negative) 12/14/17 10:10 Urine RBC (Auto) 10 /hpf (0-3) H 12/14/17 10:10 Urine Microscopic WBC 3 /hpf (0-5) 12/14/17 10:10 Ur Squamous Epith Cells 1 /hpf (0-5) 12/14/17 10:10 Urine Bacteria Rare (<OCC) 12/14/17 10:10 Hyaline Casts 0-2 /hpf (0-2) 12/14/17 10:10 Blood Type O POSITIVE 12/11/17 06:30 Blood Type Confirm O POSITIVE 12/11/17 07:34 Antibody Screen Negative 12/11/17 06:30 BBK History Checked No verified bt 12/11/17 06:30 - Hospital Course Hospital Course: General Surgery Discharge Note- Dr. Schmid 67 year old male with PMH of HTN, BPH, and adenocarcinoma of the cecum underwent robotic colectomy for cecal mass on 12/11/17. During hospital stay, patient tolerated procedure well. Pt required nasal cannula until POD#3. Chest X -ray taken on 12/14/17 and showed acetelasis. Pulmonary Dr. Mcknight and Dr. Holland consulted. Today, patient without leukocytosis and afebrile. Patient is POD #4 s /p robotic colectomy. Patient is doing well, tolerating diet, reports passing gas and producing bowel movements. Continues to use spirometer and ambulating without issues. Pain well controlled. Denies nausea, fever, shortness of breath , or chest pains. Clinically patient has improved and stable and decision made to discharge patient home. This is a summary of hospital stay, please refer to EMR for more details. Discharge Exam - Head Exam Head Exam: NORMAL INSPECTION - Eye Exam Eye Exam: Normal appearance - ENT Exam ENT Exam: Mucous Membranes Moist - Respiratory Exam Respiratory Exam: NORMAL BREATHING PATTERN - Cardiovascular Exam Cardiovascular Exam: +S1, +S2 - GI/Abdominal Exam GI & Abdominal Exam: Soft. absent: Distended, Firm, Guarding, Rebound, Rigid, Tenderness Additional comments: Incisions c/d/i staple in place - Skin Skin Exam: Dry, Intact, Normal Color Discharge Plan - Follow Up Plan Condition: GOOD Disposition: HOME/ ROUTINE Instructions: Colectomy, Laparoscopic Surgery, Colorectal Resection (DC) Additional Instructions: Follow up with PMD and surgeon 1 week No heavy lifting Walk around as tolerated Keep surgical incision sites clean dry and intact Referrals: Jason Mcknight MD [Primary Care Provider] - Anthony Schmid MD [Medical Doctor] -
[2017-12-15] MEDS: Megestrol Acetate 40 mg/ml Cup PO SCH (08:35)
--- NOTE | 2017-12-15 13:49 | RAD ---
HISTORY: COMPARISON: 12/14/2017. TECHNIQUE: Chest PA and lateral FINDINGS: LINES AND TUBES: None. LUNG AND PLEURA: There is right basilar atelectasis. There is airspace disease in the left lower lobe. There are small pleural effusions. No pneumothorax with HEART AND MEDIASTINUM: The heart is not enlarged. The hilar and mediastinal contours are within normal limits. SKELETAL STRUCTURES: The bony structures are within normal limits for the patient's age. VISUALIZED UPPER ABDOMEN: Normal. OTHER FINDINGS: None. IMPRESSION: Left lower lobe airspace disease may represent atelectasis however superimposed pneumonia cannot be excluded. Follow-up is advised. Small pleural effusions.
[2017-12-15] MEDS ORDERED: Oxycodone/Acetaminophen 5/325 mg Tab PO PRN (14:53)
--- NOTE | 2017-12-17 23:19 | CP.PCM.PN ---
Subjective - Date & Time of Evaluation Date of Evaluation: 12/15/17 Time of Evaluation: 10:00 Objective - Vital Signs/Intake and Output Vital Signs (last 24 hours): Temp Pulse Resp BP Pulse Ox 98.1 F 68 18 144/77 94 L 12/15/17 07:40 12/15/17 07:40 12/15/17 07:40 12/15/17 07:40 12/15/17 07:40 - Labs Labs: 12/15/17 06:05 12/15/17 06:05 Assessment and Plan (1) Hypoxemia Status: Acute (2) Status post colectomy Status: Acute (3) Adenocarcinoma of cecum Status: Acute
== END 2017-12-15 15:15 | disposition home or self-care (01) | DRG 329 ==
LOC: H.OPSURG 06:06 → H.ERHOLD 14:18 → H.MEDSURG1 17:03
PROVIDERS: ADMIT Surgery; ATTEND Surgery
PROC: 07BB0ZX Excision of Mesenteric Lymphatic, Open Approach, Diagnostic (ICD-10-PCS; 2017-12-11)
PROC: 0DTH0ZZ Resection of Cecum, Open Approach (ICD-10-PCS; principal; 2017-12-11 08:30)
DX: C18.0 Malignant neoplasm of cecum (principal); J18.9 Pneumonia, unspecified organism; C77.2 Secondary and unspecified malignant neoplasm of intra-abdominal lymph nodes; R09.02 Hypoxemia; I10 Essential (primary) hypertension; E78.5 Hyperlipidemia, unspecified; E78.00 Pure hypercholesterolemia, unspecified; N40.0 Benign prostatic hyperplasia without lower urinary tract symptoms; Z87.891 Personal history of nicotine dependence

== ENCOUNTER 2017-12-25 08:45 | Day surgery (SDC) | payer MEDICARE ==
[2017-12-24 14:04] VITALS: BMI 22.6
--- NOTE | 2017-12-25 09:40 | CP.SDSHP ---
Same Day Surgery H & P - History Proposed Procedure: Insertion of portacath Pre-Op Diagnosis: Hx of colon cancer - Previous Medical/Surgical History Cardiac: Hypertension Pulmonary: Smoking (history of heavy smoking) Endocrine/Metabolic: Diabetes Misc: Anemia Previous Surgical History: R colectomy with deep mesenteric lymph nodes. R inguinal hernia. Laser eye surgery - Allergies Allergies: Allergies No Known Allergies Allergy (Verified 12/11/17 06:37) - Physical Exam General Appearance: well nourished, well developed male. NAD Mental Status: Alert & Oriented x3 Lungs: WNL GI: Other (robotic incision sites healing well) - Impression Impression: Hx of colon cancer, requiring chemotherapy Pt. Evaluated Today:Candidate for Anesthesia & Procedure: Yes - Date & Time Date: 12/25/17 Time: 09:30 Short Stay Discharge - Short Stay Discharge Admitting Diagnosis/Reason for Visit: C18.9 Disposition: HOME/ ROUTINE Referrals: Jason Mcknight MD [Primary Care Provider] -
[2017-12-25 09:57] VITALS: RESP 18
[2017-12-25] MEDS ORDERED: Lactated Ringer's 1,000 ML IV ONE (10:30)
[2017-12-25] MEDS ORDERED: Bupivacaine HCl 0.5% PF (30 ml) Inj ONE (10:47)
[2017-12-25] MEDS ORDERED: Lidocaine 2% Inj (20ml) ONE (10:48)
[2017-12-25] MEDS ORDERED: Propofol 10 mg/ml Inj (20 ML) ONE (11:23)
[2017-12-25] MEDS ORDERED: Midazolam 2 MG/2 ML VIAL ONE (11:23)
[2017-12-25] MEDS ORDERED: Succinylcholine 200 mg/10 ml Inj IV ONE (11:24)
[2017-12-25] MEDS ORDERED: Lidocaine 2% MPF (5 ml) Inj ONE (11:35)
[2017-12-25] MEDS ORDERED: ePHEDrine 50 mg/ml Inj ONE (11:42)
[2017-12-25] MEDS ORDERED: Morphine 4 MG/ML VIAL IVP PRN (12:17)
--- NOTE | 2017-12-25 12:21 | PCM.SURG1 ---
Surgeon's Initial Post Op Note - Surgeon's Notes Surgeon: Dr. Schmid Urban Planning Teacher: Dayton Vallejo PGY2 Type of Anesthesia: IV Sedation, Local Pre-Operative Diagnosis: CA needing chemotherapy Operative Findings: Good SAMMY orr Post-Operative Diagnosis: Same Operation Performed: R IJ portacath placement Specimen/Specimens Removed: None Estimated Blood Loss: EBL {In ML}: 2 Blood Products Given: N/A Drains Used: No Drains Post-Op Condition: Good Date of Surgery/Procedure: 12/25/17 Time of Surgery/Procedure: 12:21
--- NOTE | 2017-12-25 12:50 | RAD ---
PROCEDURE: CHEST RADIOGRAPH, 1 VIEW HISTORY: marie cath, in pacu COMPARISON: Chest radiograph dated 12/15/2017. FINDINGS: LUNGS: Clear. PLEURA: No pneumothorax or pleural fluid seen. CARDIOVASCULAR: Atherosclerotic aortic calcifications. Cardiomediastinal silhouette unchanged. OSSEOUS STRUCTURES: Unchanged. VISUALIZED UPPER ABDOMEN: Normal. OTHER FINDINGS: Right internal jugular access chest port with catheter tip in the right atrium. IMPRESSION: New right internal jugular access chest port with catheter tip in the right atrium. No appreciable pneumothorax.
--- NOTE | 2017-12-25 14:32 | RAD ---
PROCEDURE: Intraoperative Fluoroscopy. HISTORY: MARIA R CATH FINDINGS: Fluoroscopic assistance was provided for Port-A-Cath placement. Please refer to the operative report from [facility]. Total fluoroscopic time (continuous mode) utilized during the procedure 15.8 (seconds). Total exam DLP: (mGy) 6.60
[2017-12-25 14:57] VITALS: BP 98/51; PULSE 71; TEMP 98.1; O2SAT 97
--- NOTE | 2017-12-25 16:04 | PCM.OP ---
Operative Report - Operative Report Date of Surgery/Procedure: 12/25/17 Time of Surgery/Procedure: 11:00 Surgeon: Dr. Anthony Schmid Contact Center Assistant: Dr. Dayton Vallejo Anesthesia/Sedation: MAC/Dr. Henderson Pre-Operative Diagnosis: Colon cancer with liver and ling metastases Post-Operative Diagnosis: same Indication for Surgery: as above Operative Findings: as above Procedure/Operation Description: 1-Portacath R-IJ: Brief Histroy: This 67 samreen old man recently had colectomy for colon cancer. Description of the Procedure: The patient was brought to the operating room and after induction of MAC anesthesia he was prepped and drapped in the usual sterile manner. The IJ area was infilrated with 1% lidocaine and a 20 g finder needle was introduced into the IJ and blood was aspirated. A guide wire was passed with ease and assessed under flouroscopy. A 15 blade was used make a skin incision was made and a pocket was developed with electrcautery. The introducer sheath was then passed over the guide wire and the catherer was placed under flouroscopy. The introducer was removed and the catheter placedment was affirmed. The reservoir was attached and secured to the chest wall with 3-0 vicryl. The reservoir was flushed withg excellent return flow. The pocket was closed with 3-0 vicryl and 4 -0 monocryl. A clean dressing was applied. The patient was awakened and brought to the recovery room in stable condition. Estimated Blood Loss: 10 cc Complications: none Discharge & Condition: stable
== END 2017-12-25 14:50 | disposition home or self-care (01) ==
LOC: H.OPSURG 08:45
PROVIDERS: ATTEND Surgery
DX: C18.9 Malignant neoplasm of colon, unspecified (principal); E11.9 Type 2 diabetes mellitus without complications; I10 Essential (primary) hypertension; C78.7 Secondary malignant neoplasm of liver and intrahepatic bile duct; D64.9 Anemia, unspecified; Z87.891 Personal history of nicotine dependence
CPT/HCPCS: 36561; 71045; C1769; C1788; J0690; J1644; J2250; J2704; J2765; J3010; J7040; J7120

== ENCOUNTER 2018-12-07 14:59 | Inpatient (IN) | payer MEDICARE ==
[2018-12-07] MEDS ORDERED: Sodium Chloride 0.9% 1,000 ML IV STA (15:37)
--- NOTE | 2018-12-07 15:41 | ED PDOC ---
HPI:Nausea, Vomiting, Diarrhea Time Seen by Provider: 12/07/18 15:18 Chief Complaint (Nursing): GI Problem Chief Complaint (Provider): nausea and diarrhea History Per: Patient History/Exam Limitations: no limitations Onset/Duration Of Symptoms: Days (5), Gradual, Persistent Current Symptoms Are (Timing): Still Present Quality Of Discomfort: Cramping, "Pain" Associated Symptoms: Chills, Nausea, Diarrhea (5+ times a day, watery sometimes black), Loss Of Appetite. denies: Fever, Vomiting, Back Pain, Chest Pain, Constipation, Urinary Symptoms Exacerbating Factors: None Alleviating Factors: None Additional Complaint(s): on chemotherapy for colon cancer for a year. last treatment Friday. Typically has nausea with chemo for a few days, but never this persistent. Daughter with vomit/diarrhea a week ago. No recent antibiotics no recent travel. +nonvertiginous dizziness, malaise, fatigue, generalize weakness PMD Mcknight Past Medical History Reviewed: Historical Data, Nursing Documentation, Vital Signs Vital Signs: Last Vital Signs Temp 98.1 F 12/07/18 15:01 Pulse 101 H 12/07/18 15:01 Resp 20 12/07/18 15:01 BP 155/91 H 12/07/18 15:01 Pulse Ox 95 12/07/18 15:01 - Medical History PMH: Anemia, HTN, Hypercholesterolemia (dyslipidemia), Malignancy (Colon w liver mets) Denies: Chronic Kidney Disease - Surgical History Surgical History: Hernia Repair Other surgeries: Partial colon resection. Cataracts bilateral. Prostate - Family History Family History: States: Hypertension - Social History Current smoker - smoking cessation education provided: No Alcohol: None - Immunization History Hx Tetanus Toxoid Vaccination: No Hx Influenza Vaccination: Yes Hx Pneumococcal Vaccination: No - Home Medications Home Medications: Ambulatory Orders Medication Instructions Recorded Cyanocobalamin [Vitamin B12] 500 mcg PO DAILY 12/01/17 Zolpidem Tartrate [Ambien] 10 mg PO HS 12/01/17 Amlodipine/Atorvastatin [Caduet 10 1 tab PO DAILY 12/07/18 mg-40 mg Tablet] Cyproheptadine [Periactin] 4 mg PO DAILY 12/07/18 Ergocalciferol (Vitamin D2) 50,000 unit PO MO 12/07/18 [Vitamin D2] Folic Acid 1 mg PO DAILY 12/07/18 Furosemide [Lasix] 20 mg PO DAILY 12/07/18 Multivitamin [Multi-Vitamin Daily] 1 tab PO DAILY 12/07/18 Ondansetron [Zofran Tab] 8 mg PO Q8 PRN 12/07/18 Vortioxetine Hydrobromide 10 mg PO HS 12/07/18 [Trintellix] - Allergies Allergies/Adverse Reactions: Allergies Allergy/AdvReac Type Severity Reaction Status Date / Time No Known Allergies Allergy Verified 12/07/18 15:01 Review of Systems ROS Statement: Except As Marked, All Systems Reviewed And Found Negative (and as per HPI) Constitutional: Positive for: Chills, Weakness, Malaise. Negative for: Fever Cardiovascular: Positive for: Light Headedness. Negative for: Chest Pain, Edema Gastrointestinal: Positive for: Nausea, Abdominal Pain, Diarrhea, Melena. Negative for: Vomiting, Constipation, Hematochezia, Hematemesis Neurological: Positive for: Dizziness Physical Exam - Reviewed Nursing Documentation Reviewed: Yes Vital Signs Reviewed: Yes - Physical Exam Appears: Positive for: Non-toxic, No Acute Distress Head Exam: Positive for: ATRAUMATIC, NORMOCEPHALIC Skin: Positive for: Warm, Dry Eye Exam: Positive for: EOMI, PERRL ENT: Positive for: Pharynx Is (clear), Other (pasty mucus membranes) Neck: Positive for: Painless ROM, Supple Cardiovascular/Chest: Positive for: Regular Rate, Rhythm. Negative for: Murmur Respiratory: Positive for: Normal Breath Sounds. Negative for: Respiratory Distress Gastrointestinal/Abdominal: Positive for: Bowel Sounds (hyperactive), Soft. Ne gative for: Tenderness Back: Positive for: Normal Inspection. Negative for: Decreased ROM Rectal: Positive for: Rectal Tone Is: (normal) Extremity: Positive for: Normal ROM. Negative for: Deformity Lymphatic: Negative for: Adenopathy Neurological/Psych: Positive for: Awake, Alert. Negative for: Motor/Sensory Deficits - Laboratory Results Result Diagrams: 12/07/18 16:17 12/07/18 16:17 - ECG O2 Sat by Pulse Oximetry: 95 Medical Decision Making Medical Decision Making: Time: 1537 Impression: Nausea and diarrhea Differentials include but not limited to gastroenteritis, chemo therapy associated colitis, infectious colitis, dehydration, sepsis and c diff Plan: -- Type and Screen -- CT Abd/Pelvis IV Contrast -- CMP -- Lact Acid, Plasma -- Lipase -- Magnesium -- Phosphorus -- ED Urine Dipstick -- CBC with Differentials -- PTT -- Prothrombin Time -- Dextrose 5%-0.45$ IV 100 mls/hr -- Sodium Chloride IV 1000 mls/hr -- Zofran Inj 8 mg IV -- Blood Culture -- OVA and Parasite -- Stool Culture -- IV Insertion -- C Diff Toxin A B -- Occult Blood, Stool, ER Accession No. : [id number] Patient Name / ID : JACE RIVAS / [id number] Exam Date : 12/07/2018 17:07:26 ( Approved ) Study Comment : Sex / Age : M / 68Y Creator : Bacilio Kc MD Dictator : Bacilio Kc MD Jitney Driver : Radiology Manager : Bacilio Kc MD Approver2 : Report Date : 12/07/2018 18:17:48 My Comment : Date of service: 12/07/2018 PROCEDURE: CT Abdomen and Pelvis with contrast HISTORY: severe diarrhe and cramp h/o colon ca COMPARISON: None. TECHNIQUE: Intravenous contrast dose: 95 cc Omnipaque 300. Radiation dose: Total exam DLP = 308.87 mGy-cm. This CT exam was performed using one or more of the following dose reduction techniques: Automated exposure control, adjustment of the mA and/or kV according to patient size, and/or use of iterative reconstruction technique. FINDINGS: LOWER THORAX: Pulmonary nodule right middle lobe less than 1 cm. Additional smaller pulmonary nodule medial segment right middle lobe. LIVER: Multiple hepatic masses all displaying Hounsfield unit values exceeding 30. The largest mass in segment 6 of the right lobe measures 2.7 cm. The findings are suspicious for metastatic disease. GALLBLADDER AND BILE DUCTS: Markedly distended gallbladder 11 cm in length. No visible gallstones. No gallbladder wall thickening or pericholecystic fluid. PANCREAS: Unremarkable. No gross lesion or ductal dilatation. SPLEEN: Unremarkable. ADRENALS: Unremarkable. No mass. KIDNEYS AND URETERS: Right kidney: Calculus disease lower pole with adjacent scarring. Left kidney: Unremarkable. No hydronephrosis. No solid mass. Incidental bilateral renal cysts. VASCULATURE: Atherosclerotic calcification and mural plaque present. Findings are seen throughout the aorta which is non aneurysmal. BOWEL: Dilated loops of distal small bowel. These appear at the colo enteric anastomotic sites in the right lower quadrant. In addition, edematous wall of the small bowel. APPENDIX: Normal appendix. PERITONEUM: Unremarkable. No free fluid. No free air. LYMPH NODES: Unremarkable. No enlarged lymph nodes. BLADDER: Unremarkable. REPRODUCTIVE: Unremarkable. BONES: No acute fracture. OTHER FINDINGS: None. IMPRESSION: Status post right hemicolectomy. Dilated small bowel proximal to the anastomosis. In addition, these loops of dilated small bowel are edematous indicative of a component of enteritis. Hepatic metastatic disease. Pulmonary metastatic disease. Markedly distended gallbladder etiology is uncertain. Communication of results: Study completed at 17:49. I discussed the findings with Dr. Sanchez in the emergency department at 18:12. Time: 1839 -- Labs demonstrate leukocytosis, Chemistry within normal limits including lactic acid. On re-evaluation, patient continues to have nausea. Patient reports thta the original surgeon for his partial colectomy was Dr. Schmid. Spoke to Dr. Saxena, assistant professor surgical technology for Dr. Schmid. -- Discussed with Candido Mccoy NP for Dr. Mcknight for admission. Discussed with patient and findings and plan of care. IV antibiotics initiated and additional IV Reglan ordered as well. -- Benadryl 25 mg IVP -- Pepcid 40 mg IVP -- Reglan 10 mg IV -- Zosyn 3.375 gm Sodium Chloride 0.9% 100 ml IVPB Scribe Attestation: Documented by De Trevino, acting as a scribe Sharri Sanchez MD. Provider Scribe Attestation: All medical record entries made by the Scribe were at my direction and personally dictated by me. I have reviewed the chart and agree that the record a ccurately reflects my personal performance of the history, physical exam, medical decision making, and the department course for this patient. I have also personally directed, reviewed, and agree with the discharge instructions and disposition. Disposition - Clinical Impression Clinical Impression: Gastroenteritis Counseled Patient/Family Regarding: Studies Performed, Diagnosis - Disposition Disposition Time: 18:30 Condition: FAIR - Pt Status Changed To: Hospital Disposition Of: Inpatient - Admit Certification Admit to Inpatient:: After my assessment, the patient will require hospitalization for at least two midnights. This is because of the severity of symptoms shown, intensity of services needed, and/or the medical risk in this patient being treated as an outpatient. - POA Present On Arrival: None
[2018-12-07 16:31] LABS: BASO % 0.1 % (0.0-2.0); EOS # 0.2 K/uL (0.0-0.7); EOS % 1.1 % (0.0-4.0); HEMOGLOBIN 14.8 g/dL (12.0-18.0); INR 1.3; LYMPH # 0.4 K/uL (1.0-4.3); MEAN CELL VOLUME 90.2 fl (80.0-94.0); MEAN CORPUSCULAR HEMOGLOBIN 29.5 pg (27.0-31.0); MEAN CORPUSCULAR HGB CONC 32.7 g/dL (33.0-37.0); MEAN PLATELET VOLUME 9.3 fl (7.2-11.7); MONO # 0.2 K/uL (0.0-0.8); MONO % 1.3 % (0.0-10.0); NEUT # 16.9 K/uL (1.8-7.0); NEUT % 95.5 % (50.0-75.0); PLATELET COUNT 105 K/uL (130-400); PROTHROMBIN TIME 14.5 Seconds (9.8-13.1); RBC 5.02 Mil/uL (4.40-5.90); WHITE BLOOD COUNT 17.7 K/uL (4.8-10.8)
[2018-12-07 16:33] LABS: PARTIAL THROMBOPLASTIN TIME 32.7 Seconds (25.6-37.1)
[2018-12-07 16:37] LABS: ALB/GLOB RATIO 1.4 (1.0-2.1); ALBUMIN 4.1 g/dL (3.5-5.0); ALT/SGPT 30 U/L (21-72); AST/SGOT 26 U/L (17-59); BLOOD UREA NITROGEN 19 mg/dl (9-20); GFR NON-AFRICAN AMERICAN > 60; LIPASE 18 U/L (23-300)
[2018-12-07] MEDS ORDERED: Iohexol 300 100 ML IJ ONE (17:05)
[2018-12-07] MEDS ORDERED: Sodium Chloride 0.9% 50 ML IV ONE (17:06)
[2018-12-07 17:49] LABS: BANDS 2 % (0-2); EOSINOPHIL 1 % (0-7); LARGE PLATELETS PRESENT; LYMPHOCYTE 3 % (20-50); METAMYELOCYTE 1 % (0-0); MONOCYTE 1 % (0-10); NEUTROPHIL 92 % (42-75); PLATELET ESTIMATE INCREASED (NORMAL); TOTAL CELLS COUNTED 100
[2018-12-07 17:50] LABS: ANISOCYTOSIS MODERATE; GIANT PLATELETS PRESENT
--- NOTE | 2018-12-07 18:21 | CT ---
Date of service: 12/07/2018 PROCEDURE: CT Abdomen and Pelvis with contrast HISTORY: severe diarrhe and cramp h/o colon ca COMPARISON: None. TECHNIQUE: Intravenous contrast dose: 95 cc Omnipaque 300. Radiation dose: Total exam DLP = 308.87 mGy-cm. This CT exam was performed using one or more of the following dose reduction techniques: Automated exposure control, adjustment of the mA and/or kV according to patient size, and/or use of iterative reconstruction technique. FINDINGS: LOWER THORAX: Pulmonary nodule right middle lobe less than 1 cm. Additional smaller pulmonary nodule medial segment right middle lobe. LIVER: Multiple hepatic masses all displaying Hounsfield unit values exceeding 30. The largest mass in segment 6 of the right lobe measures 2.7 cm. The findings are suspicious for metastatic disease. GALLBLADDER AND BILE DUCTS: Markedly distended gallbladder 11 cm in length. No visible gallstones. No gallbladder wall thickening or pericholecystic fluid. PANCREAS: Unremarkable. No gross lesion or ductal dilatation. SPLEEN: Unremarkable. ADRENALS: Unremarkable. No mass. KIDNEYS AND URETERS: Right kidney: Calculus disease lower pole with adjacent scarring. Left kidney: Unremarkable. No hydronephrosis. No solid mass. Incidental bilateral renal cysts. VASCULATURE: Atherosclerotic calcification and mural plaque present. Findings are seen throughout the aorta which is non aneurysmal. BOWEL: Dilated loops of distal small bowel. These appear at the colo enteric anastomotic sites in the right lower quadrant. In addition, edematous wall of the small bowel. APPENDIX: Normal appendix. PERITONEUM: Unremarkable. No free fluid. No free air. LYMPH NODES: Unremarkable. No enlarged lymph nodes. BLADDER: Unremarkable. REPRODUCTIVE: Unremarkable. BONES: No acute fracture. OTHER FINDINGS: None. IMPRESSION: Status post right hemicolectomy. Dilated small bowel proximal to the anastomosis. In addition, these loops of dilated small bowel are edematous indicative of a component of enteritis. Hepatic metastatic disease. Pulmonary metastatic disease. Markedly distended gallbladder etiology is uncertain. Communication of results: Study completed at 17:49. I discussed the findings with Dr. Sanchez in the emergency department at 18:12.
[2018-12-07] MEDS ORDERED: DiphenhydrAMINE 50 mg/ml Inj IVP STA (18:24)
[2018-12-07] MEDS ORDERED: Piperacillin/Tazobact 3.375 GM in Sodium Chloride 0.9% 100 ML IVPB STA (18:26)
[2018-12-07] MEDS ORDERED: DiphenhydrAMINE 50 mg/ml Inj ONE (18:51)
[2018-12-07] MEDS ORDERED: Piperacillin/Tazobact 3.375 gm Inj IVPB ONE (18:52)
--- NOTE | 2018-12-07 19:17 | CP.PCM.CON ---
History of Present Illness - History of Present Illness History of Present Illness: Surgery: Dr. Schmid Reason for consult: possible SBO HPI: Patient is a 68 y/o male w/ significant pmhx of colon CA s/p right hemico lectomy with hepatic metastasis on chemo for the past year, last dose on Friday, presents complaining of nausea and diarrhea for the past 4-5 days. He states he has 4-5 episodes of diarrhea per day, no bloody but sometimes looks black. He reports significant nausea, which usually resolves post chemo, that has been persistent. He reports minimal vomiting but emesis appears clear bilious, no blood. He denies fever but reports chills. Some abdominal discomfort. He states he was eating ok until about Friday and has had decreased appetite. He denies recent travel, abx use, strange food types or sick contacts. PMH: colon ca w/ hep mets on chemo, HTN, HLD PSH: robotic right hemicolectomy, IHR, EGD/Colonoscopy, prostate bx, BL cataracts social: lives with family, denies etoh, tobacco, or drug use. Former tobacco user. Review of Systems - Constitutional Constitutional: Anorexia, Chills, Malaise. absent: Fever, Weight Loss - EENT Eyes: absent: Blurred Vision, Change in Vision Nose/Mouth/Throat: absent: Nasal Congestion, Nasal Obstruction - Cardiovascular Cardiovascular: absent: Chest Pain, Dyspnea - Respiratory Respiratory: absent: Cough, Wheezing - Gastrointestinal Gastrointestinal: Bloating, Diarrhea, Loose Stools, Nausea, Vomiting. absent: Abdominal Pain, Belching, Constipation, Hematemesis, Hematochezia - Genitourinary Genitourinary: absent: Hematuria, Pyuria - Musculoskeletal Musculoskeletal: absent: Stiffness, Tingling - Integumentary Integumentary: absent: Skin Pain, Wounds - Neurological Neurological: absent: Disequilibrium, Dizziness - Psychiatric Psychiatric: Change in Appetite. absent: Anxiety, Depression - Endocrine Endocrine: absent: Polydipsia, Polyphagia - Hematologic/Lymphatic Hematologic: absent: Easy Bleeding, Easy Bruising Past Patient History - Past Medical History & Family History Past Medical History?: Yes - Past Social History Alcohol: None - CARDIAC Hx Hypercholesterolemia: Yes (dyslipidemia) Hx Hypertension: Yes - PULMONARY Hx Respiratory Disorders: No - NEUROLOGICAL Hx Neurological Disorder: No - HEENT Hx HEENT Problems: No - RENAL Hx Chronic Kidney Disease: No - ENDOCRINE/METABOLIC Hx Endocrine Disorders: No - HEMATOLOGICAL/ONCOLOGICAL Hx Anemia: Yes - INTEGUMENTARY Hx Dermatological Problems: No - MUSCULOSKELETAL/RHEUMATOLOGICAL Hx Musculoskeletal Disorders: No - GASTROINTESTINAL Hx Gastrointestinal Disorders: Yes - GENITOURINARY/GYNECOLOGICAL Hx Genitourinary Disorders: No - PSYCHIATRIC Hx Psychophysiologic Disorder: No Hx Substance Use: No - SURGICAL HISTORY Hx Vascular Access Device: Yes (Port right side chest) Other/Comment: colon tumor removed--november 2017 - ANESTHESIA Hx Anesthesia: Yes Hx Anesthesia Reactions: No Hx Malignant Hyperthermia: No Meds Allergies/Adverse Reactions: Allergies Allergy/AdvReac Type Severity Reaction Status Date / Time No Known Allergies Allergy Verified 12/07/18 15:01 - Medications Medications: Current Medications Dextrose/Sodium Chloride (Dextrose 5%-0.45% Ns 500 Ml) 500 mls @ 100 mls/hr IV .Q5H [facility] Piperacillin Sod/Tazobactam (Sod 3.375 gm/ Sodium Chloride) 100 mls @ 100 mls/hr IVPB STAT STA; Protocol Stop: 12/07/18 19:25 Physical Exam - Constitutional Appears: Non-toxic, No Acute Distress - Head Exam Head Exam: ATRAUMATIC, NORMOCEPHALIC - Eye Exam Eye Exam: EOMI - ENT Exam ENT Exam: Mucous Membranes Moist - Respiratory Exam Respiratory Exam: NORMAL BREATHING PATTERN. absent: Respiratory Distress - Cardiovascular Exam Cardiovascular Exam: REGULAR RHYTHM. absent: Tachycardia - GI/Abdominal Exam GI & Abdominal Exam: Distended, Hernia (small reducible incisional hernia), Soft. absent: Guarding, Rebound, Tenderness - Extremities Exam Extremities exam: Positive for: normal inspection. Negative for: calf tenderness - Neurological Exam Neurological exam: Alert, Oriented x3 - Psychiatric Exam Psychiatric exam: Normal Affect, Normal Mood - Skin Skin Exam: Dry, Normal Color, Warm Results - Vital Signs Recent Vital Signs: Last Vital Signs Temp 98.1 F 12/07/18 15:01 Pulse 101 H 12/07/18 15:01 Resp 20 12/07/18 15:01 BP 155/91 H 12/07/18 15:01 Pulse Ox 95 12/07/18 18:45 - Labs Result Diagrams: 12/07/18 16:17 12/07/18 16:17 Labs: Laboratory Results - last 24 hr 12/07/18 12/07/1819 16:00 16:00 16:00 WBC RBC Hgb Hct MCV MCH MCHC RDW Plt Count MPV Neut % (Auto) Lymph % (Auto) [place] % (Auto) Eos % (Auto) Baso % (Auto) Neut # (Auto) Lymph # (Auto) [place] # (Auto) Eos # (Auto) Baso # (Auto) Neutrophils % (Manual) Band Neutrophils % Lymphocytes % (Manual) Monocytes % (Manual) Eosinophils % (Manual) Metamyelocytes % Platelet Estimate Large Platelets Giant Platelets Anisocytosis (manual) PT INR APTT Sodium Potassium Chloride Carbon Dioxide Anion Gap BUN Creatinine Est GFR ( Amer) Est GFR (Non-Af Amer) Random Glucose Lactic Acid 1.2 Calcium Phosphorus Magnesium Total Bilirubin AST ALT Alkaline Phosphatase Total Protein Albumin Globulin Albumin/Globulin Ratio Lipase Stool Occult Blood Negative Blood Type O POSITIVE Antibody Screen Negative BBK History Checked Patient has bt 12/07/18 12/07/18 12/07/18 16:17 16:17 16:17 WBC 17.7 H D RBC 5.02 Hgb 14.8 D Hct 45.2 MCV 90.2 D MCH 29.5 MCHC 32.7 L RDW 19.0 H Plt Count 105 L D MPV 9.3 Neut % (Auto) 95.5 H Lymph % (Auto) 2.0 L [place] % (Auto) 1.3 Eos % (Auto) 1.1 Baso % (Auto) 0.1 Neut # (Auto) 16.9 H Lymph # (Auto) 0.4 L [place] # (Auto) 0.2 Eos # (Auto) 0.2 Baso # (Auto) 0.0 Neutrophils % (Manual) 92 H Band Neutrophils % 2 Lymphocytes % (Manual) 3 L Monocytes % (Manual) 1 Eosinophils % (Manual) 1 Metamyelocytes % 1 H Platelet Estimate Increased H Large Platelets Present Giant Platelets Present Anisocytosis (manual) Moderate PT 14.5 H INR 1.3 APTT 32.7 Sodium 138 Potassium 4.4 Chloride 102 Carbon Dioxide 25 Anion Gap 15 BUN 19 Creatinine 0.9 Est GFR ( Amer) > 60 Est GFR (Non-Af Amer) > 60 Random Glucose 115 H Lactic Acid Calcium 9.0 Phosphorus 3.6 Magnesium 1.9 Total Bilirubin 0.7 AST 26 ALT 30 Alkaline Phosphatase 221 H D Total Protein 7.0 Albumin 4.1 Globulin 2.9 Albumin/Globulin Ratio 1.4 Lipase 18 L Stool Occult Blood Blood Type Antibody Screen BBK History Checked Assessment & Plan - Assessment and Plan (Free Text) Assessment: 68 y/o male w/ enteritis Plan: -CT read as enteritis possible partial SBO - clinically not obstructed -more nausea than vomiting - Zofran prn -IVFS hydration -abx per primary -stool studies -NPO for now -will monitor -d/w Dr. Sharmaine Narvaez PGY4
[2018-12-07] MEDS ORDERED: Piperacillin/Tazobact 3.375 GM in Sodium Chloride 0.9% 100 ML IVPB SCH (22:00)
[2018-12-07] MEDS: Lactated Ringer's 1,000 ML IV SCH (23:06)
[2018-12-07 23:36] VITALS: BMI 24.7
[2018-12-08] MEDS: Piperacillin/Tazobact 3.375 GM in Sodium Chloride 0.9% 100 ML IVPB SCH ×5 (00:03→21:17)
[2018-12-08] MEDS: Lactated Ringer's 1,000 ML IV SCH ×3 (05:28→21:23)
[2018-12-08 06:15] LABS: BASO % 0.2 % (0.0-2.0); EOS % 0.7 % (0.0-4.0); HEMOGLOBIN 13.6 g/dL (12.0-18.0); LYMPH # 0.3 K/uL (1.0-4.3); LYMPH % 6.3 % (20.0-40.0); MEAN CELL VOLUME 90.6 fl (80.0-94.0); MEAN CORPUSCULAR HEMOGLOBIN 29.4 pg (27.0-31.0); MEAN CORPUSCULAR HGB CONC 32.5 g/dL (33.0-37.0); MEAN PLATELET VOLUME 9.3 fl (7.2-11.7); MONO # 0.1 K/uL (0.0-0.8); MONO % 2.8 % (0.0-10.0); NEUT # 4.6 K/uL (1.8-7.0); RBC 4.62 Mil/uL (4.40-5.90)
[2018-12-08 06:31] LABS: ALB/GLOB RATIO 1.2 (1.0-2.1); ALT/SGPT 26 U/L (21-72); AST/SGOT 31 U/L (17-59); BLOOD UREA NITROGEN 16 mg/dl (9-20); GFR NON-AFRICAN AMERICAN > 60
[2018-12-08 06:35] LABS: WHITE BLOOD COUNT 5.1 K/uL (4.8-10.8)
--- NOTE | 2018-12-08 08:24 | CP.PCM.PN ---
Subjective - Date & Time of Evaluation Date of Evaluation: 12/08/18 Time of Evaluation: 08: - Subjective Subjective: General Surgery Progress Note: Dr. Schmid 68 year old male patient seen and examined at bedside this AM. Patient resting comfortably and in NAD. No acute events overnight. Denies nausea/vomiting/fever/shortness of breath, admits to diarrhea and decreased appetite. Objective - Vital Signs/Intake and Output Vital Signs (last 24 hours): Temp Pulse Resp BP Pulse Ox 98.2 F 78 18 123/78 95 12/08/18 05:32 12/08/18 05:32 12/08/18 05:32 12/08/18 05:32 12/08/18 05:32 - Medications Medications: Current Medications Dextrose/Sodium Chloride (Dextrose 5%-0.45% Ns 500 Ml) 500 mls @ 100 mls/hr IV .Q5H [facility] Last Admin: 12/07/18 16:30 Dose: 100 mls/hr Lactated Ringer's (Lactated Ringer's) 1,000 mls @ 115 mls/hr IV .Q8H42M [facility] Last Admin: 12/08/18 05:28 Dose: Not Given Piperacillin Sod/Tazobactam (Sod 3.375 gm/ Sodium Chloride) 100 mls @ 100 mls/hr IVPB Q6 [facility]; Protocol Last Admin: 12/08/18 03:08 Dose: 100 mls/hr Ondansetron HCl (Zofran Inj) 4 mg IVP Q4 PRN PRN Reason: Nausea/Vomiting Last Admin: 12/08/18 03:11 Dose: 4 mg - Labs Labs: 12/08/18 06:05 12/08/18 06:05 PT 14.5 Seconds (9.8-13.1) H 12/07/18 16:17 INR 1.3 12/07/18 16:17 APTT 32.7 Seconds (25.6-37.1) 12/07/18 16:17 - Constitutional Appears: Non-toxic, No Acute Distress - Head Exam Head Exam: ATRAUMATIC, NORMOCEPHALIC - Eye Exam Eye Exam: Normal appearance - ENT Exam ENT Exam: Mucous Membranes Moist - Respiratory Exam Respiratory Exam: NORMAL BREATHING PATTERN - GI/Abdominal Exam GI & Abdominal Exam: Distended, Soft. absent: Tenderness - Extremities Exam Extremities Exam: Normal Capillary Refill. absent: Calf Tenderness - Back Exam Back Exam: NORMAL INSPECTION - Neurological Exam Neurological Exam: Alert, Awake, Oriented x3 - Psychiatric Exam Psychiatric exam: Normal Affect, Normal Mood - Skin Skin Exam: Intact, Warm Assessment and Plan - Assessment and Plan (Free Text) Assessment: 68 year old male with enteritis Plan: - CT Abdomen and Pelvis; Dilated small bowel proximal to the anastamosis - Antibiotics per primary team - Follow up stool studies - Advance to clears - F/u in office next week for hernia repair surgical planning - Further recs per Dr. Sharmaine Ridley PGY1
[2018-12-08] MEDS ORDERED: Simethicone 80 mg Chewtab PO PRN (14:31)
--- NOTE | 2018-12-09 | CP.PCM.HP ---
History of Present Illness - History of Present Illness History of Present Illness: CC: Abdominal pain with loose stools. HPI: 68 y/o male with a PMH of Colon CA with liver METS presented to the ED with complaints of abdominal pain and associated diarrhea. The pt last received his chemotherapy on Friday and reports symptoms have persisted since then. As per the pts daughter, she was recently sick with similar symptoms 5-7 days prior to admission. PMH: Anemia, HTN, Hyperlipidemia, Malignancy (Colon with liver mets, on chemo). PSH: Hernia repair, partial colon resection, cataracts bilaterally, prostate surgery. Allergies: NKDA. Subjective Review of Systems: Reviewed and no additional remarkable complaints except occasional abdominal pain and loose, watery stools. Objective Appears: Anxious, Non-toxic, No Acute Distress. Head Exam: NORMAL INSPECTION, normocephalic. Eye Exam: Normal eye inspection, EOMI, PERRLA. Respiratory Exam: NORMAL BREATHING PATTERN, breath sounds clear bilaterally. Cardiovascular Exam: +S1, +S2. RRR. GI & Abdominal Exam: Hyperactive bowel sounds, abdomen is mildly tender on palpation at hernia site. Neurological Exam: Alert, Awake, Oriented x3. Psychiatric exam: Normal mood. Calm and cooperative. Skin exam: Normal color, warm, dry. Assessment/Impression/Plan: 1.) Abdominal Pain/Enteritis -Pt on Zosyn 3.375 Q6h. -IVF hydration. -Surgery consult input appreciated. -NPO for now; consider advancing to liquids as tolerated. -WBC down to 5.1 from 17.6. -Continue current treatment. Present on Admission - Present on Admission Any Indicators Present on Admission: No Past Patient History - Past Medical History & Family History Past Medical History?: Yes - Past Social History Smoking Status: Former Smoker - CARDIAC Hx Cardiac Disorders: Yes Hx Hypercholesterolemia: Yes (dyslipidemia) Hx Hypertension: Yes - PULMONARY Hx Respiratory Disorders: No - NEUROLOGICAL Hx Neurological Disorder: No - HEENT Hx HEENT Problems: Yes Hx Cataracts: Yes (bilateral eyes) - RENAL Hx Chronic Kidney Disease: No - ENDOCRINE/METABOLIC Hx Endocrine Disorders: No - HEMATOLOGICAL/ONCOLOGICAL Hx Blood Disorders: Yes Hx Anemia: Yes Hx Chemotherapy: Yes (last Friday12/03/17) Hx Metastesis: Yes - INTEGUMENTARY Hx Dermatological Problems: No - MUSCULOSKELETAL/RHEUMATOLOGICAL Hx Musculoskeletal Disorders: No Hx Falls: No - GASTROINTESTINAL Hx Gastrointestinal Disorders: No - GENITOURINARY/GYNECOLOGICAL Hx Genitourinary Disorders: No - PSYCHIATRIC Hx Psychophysiologic Disorder: No Hx Substance Use: No - SURGICAL HISTORY Hx Surgeries: Yes Hx Herniorrhaphy: Yes Hx Vascular Access Device: Yes (Port right side chest) Other/Comment: colon tumor removed--november 2017 - ANESTHESIA Hx Anesthesia: Yes Hx Anesthesia Reactions: No Hx Malignant Hyperthermia: No Meds Allergies/Adverse Reactions: Allergies Allergy/AdvReac Type Severity Reaction Status Date / Time No Known Allergies Allergy Verified 12/07/18 15:01 Results - Vital Signs Recent Vital Signs: Last Vital Signs Temp 97.8 F 12/08/18 16:18 Pulse 78 12/08/18 16:18 Resp 20 12/08/18 16:18 BP 147/85 12/08/18 16:18 Pulse Ox 94 L 12/08/18 16:18 - Labs Result Diagrams: 12/08/18 06:05 12/08/18 06:05 Labs: Laboratory Results - last 24 hr 12/08/18 12/08/18 06:05 06:05 WBC 5.1 D RBC 4.62 Hgb 13.6 Hct 41.8 MCV 90.6 MCH 29.4 MCHC 32.5 L RDW 19.0 H Plt Count 84 L D MPV 9.3 Neut % (Auto) 90.0 H Lymph % (Auto) 6.3 L [place] % (Auto) 2.8 Eos % (Auto) 0.7 Baso % (Auto) 0.2 Neut # (Auto) 4.6 Lymph # (Auto) 0.3 L [place] # (Auto) 0.1 Eos # (Auto) 0.0 Baso # (Auto) 0.0 Total Counted Cancelled Neutrophils % (Manual) Cancelled Band Neutrophils % Cancelled Lymphocytes % (Manual) Cancelled Reactive Lymphs % Cancelled Monocytes % (Manual) Cancelled Eosinophils % (Manual) Cancelled Basophils % (Manual) Cancelled Metamyelocytes % Cancelled Myelocytes % Cancelled Promyelocytes % Cancelled Blast Cells % Cancelled Plasma Cell % (Manual) Cancelled Nucleated RBC % Cancelled Hypersegmented Polys Cancelled Smudge Cells Cancelled Toxic Granulation Cancelled Dohle Bodies Cancelled Elvin Rods Cancelled Platelet Estimate Cancelled Plt Clumps, EDTA Cancelled Large Platelets Cancelled Giant Platelets Cancelled RBC Morphology Cancelled Polychromasia Cancelled Hypochromasia (manual) Cancelled Poikilocytosis (manual Cancelled Basophilic Stippling Cancelled Anisocytosis (manual) Cancelled Microcytosis (manual) Cancelled Macrocytosis (manual) Cancelled Spherocytes Cancelled Sickle Cells Cancelled Target Cells Cancelled Tear Drop Cells Cancelled Ovalocytes Cancelled Stomatocytes Cancelled Helmet Cells Cancelled [place] Bodies Cancelled Samuel Cells Cancelled Acanthocytes (Spur) Cancelled Rouleaux Cancelled Schistocytes Cancelled Sodium 137 Potassium 3.7 Chloride 109 H Carbon Dioxide 19 L Anion Gap 13 BUN 16 Creatinine 0.9 Est GFR ( Amer) > 60 Est GFR (Non-Af Amer) > 60 Random Glucose 124 H Calcium 8.0 L Total Bilirubin 1.2 AST 31 ALT 26 Alkaline Phosphatase 152 H D Total Protein 5.6 L Albumin 3.0 L D Globulin 2.6 Albumin/Globulin Ratio 1.2 Assessment & Plan (1) Gastroenteritis Status: Acute
[2018-12-09] MEDS: Lactated Ringer's 1,000 ML IV SCH ×4 (03:06→21:17)
[2018-12-09] MEDS: Piperacillin/Tazobact 3.375 GM in Sodium Chloride 0.9% 100 ML IVPB SCH ×4 (03:07→21:14)
[2018-12-09 06:57] LABS: BASO % 0.3 % (0.0-2.0); EOS # 0.1 K/uL (0.0-0.7); EOS % 2.4 % (0.0-4.0); HEMOGLOBIN 11.9 g/dL (12.0-18.0); LYMPH # 0.6 K/uL (1.0-4.3); LYMPH % 17.3 % (20.0-40.0); MEAN CELL VOLUME 90.8 fl (80.0-94.0); MEAN CORPUSCULAR HEMOGLOBIN 29.5 pg (27.0-31.0); MEAN CORPUSCULAR HGB CONC 32.5 g/dL (33.0-37.0); MEAN PLATELET VOLUME 10.3 fl (7.2-11.7); MONO # 0.3 K/uL (0.0-0.8); MONO % 7.2 % (0.0-10.0); NEUT # 2.7 K/uL (1.8-7.0); NEUT % 72.8 % (50.0-75.0); NRBC % 0.1 % (0.0-0.0); RBC 4.04 Mil/uL (4.40-5.90); RED CELL DISTRIBUTION WIDTH 18.8 % (11.5-14.5); WHITE BLOOD COUNT 3.7 K/uL (4.8-10.8)
[2018-12-09 07:34] LABS: BLOOD UREA NITROGEN 20 mg/dl (9-20); CALCIUM 8.4 mg/dL (8.4-10.2); GFR NON-AFRICAN AMERICAN > 60
[2018-12-09] MEDS: Pantoprazole 40 mg EC Tab PO SCH (09:20)
[2018-12-09] MEDS ORDERED: Alum-Mag Hydrox-Simethicone Susp (30 mL) PO ONE (09:30)
--- NOTE | 2018-12-09 10:29 | CP.PCM.PN ---
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 No acute events overnight. + loose BM, + flatus. Denies vomiting/fever/chills, admits to nausea. Objective - Vital Signs/Intake and Output Vital Signs (last 24 hours): Temp Pulse Resp BP Pulse Ox 97.9 F 65 20 120/72 95 12/09/18 08:19 12/09/18 08:19 12/09/18 08:19 12/09/18 08:19 12/09/18 08:19 - Medications Medications: Current Medications Enoxaparin Sodium (Lovenox) 40 mg SC DAILY [facility]; Protocol Lactated Ringer's (Lactated Ringer's) 1,000 mls @ 115 mls/hr IV .Q8H42M [facility] Last Admin: 12/09/18 05:49 Dose: Not Given Piperacillin Sod/Tazobactam (Sod 3.375 gm/ Sodium Chloride) 100 mls @ 100 mls/hr IVPB Q6 [facility]; Protocol Last Admin: 12/09/18 09:01 Dose: 100 mls/hr Loperamide HCl (Imodium) 2 mg PO Q6 PRN PRN Reason: Diarrhea Ondansetron HCl (Zofran Inj) 4 mg IVP Q4 PRN PRN Reason: Nausea/Vomiting Last Admin: 12/09/18 08:58 Dose: 4 mg Pantoprazole Sodium (Protonix Ec Tab) 40 mg PO DAILY [facility] Last Admin: 12/09/18 09:20 Dose: 40 mg Simethicone (Mylicon Chew Tab) 80 mg PO Q8 PRN PRN Reason: Flatulence Last Admin: 12/08/18 14:36 Dose: 80 mg - Labs Labs: 12/09/18 05:50 12/09/18 05:50 PT 14.5 Seconds (9.8-13.1) H 12/07/18 16:17 INR 1.3 12/07/18 16:17 APTT 32.7 Seconds (25.6-37.1) 12/07/18 16:17 - Constitutional Appears: Non-toxic, No Acute Distress - Head Exam Head Exam: ATRAUMATIC, NORMOCEPHALIC - Eye Exam Eye Exam: Normal appearance - ENT Exam ENT Exam: Mucous Membranes Moist - Respiratory Exam Respiratory Exam: NORMAL BREATHING PATTERN - Cardiovascular Exam Cardiovascular Exam: REGULAR RHYTHM - GI/Abdominal Exam GI & Abdominal Exam: Distended, Soft, Hernia. absent: Tenderness - Extremities Exam Extremities Exam: absent: Calf Tenderness, Normal Capillary Refill - Back Exam Back Exam: NORMAL INSPECTION - Neurological Exam Neurological Exam: Alert, Awake, Oriented x3 - Psychiatric Exam Psychiatric exam: Normal Affect, Normal Mood Assessment and Plan - Assessment and Plan (Free Text) Assessment: 68 year old male with enteritis Plan: - Soft diet - CT Abdomen and Pelvis; Dilated small bowel proximal to the anastamosis - Antibiotics per primary team - Follow up stool studies - Advance to clears - F/u in office next week for hernia repair surgical planning - Further recs per Dr. Sharmaine Ridley PGY1
[2018-12-09] MEDS: Enoxaparin 40 mg Syringe SC SCH (11:42)
[2018-12-10] MEDS: Lactated Ringer's 1,000 ML IV SCH ×2 (00:58→10:08)
--- NOTE | 2018-12-10 02:02 | CP.PCM.PN ---
Subjective - Date & Time of Evaluation Date of Evaluation: 12/09/18 Time of Evaluation: 09:45 - Subjective Subjective: Pt seen and assessed at bedside. Still reports watery stools, continued on IVF hydration. Otherwise, no additional complaints or acute events reported. Subjective Review of Systems: Reviewed and no additional remarkable complaints except occasional abdominal pain and loose, watery stools. Objective Appears: Anxious, Non-toxic, No Acute Distress. Head Exam: NORMAL INSPECTION, normocephalic. Eye Exam: Normal eye inspection, EOMI, PERRLA. Respiratory Exam: NORMAL BREATHING PATTERN, breath sounds clear bilaterally. Cardiovascular Exam: +S1, +S2. RRR. GI & Abdominal Exam: Hyperactive bowel sounds, abdomen is mildly tender on p alpation at hernia site. Neurological Exam: Alert, Awake, Oriented x3. Psychiatric exam: Normal mood. Calm and cooperative. Skin exam: Normal color, warm, dry. Assessment/Impression/Plan: 1.) Abdominal Pain/Enteritis -Pt on Zosyn 3.375 Q6h. -Continue IVF hydration as pt is still at risk for electrolyte loss/imbalance from repeated diarrhea episodes. -Surgery consult input appreciated. -Advance diet as tolerated. -Potassium trending downward; replenish as necessary. -Continue current treatment. -If diarrhea episodes subside, and diet is tolerated well, discharge planning could be initiated. Objective - Vital Signs/Intake and Output Vital Signs (last 24 hours): Temp Pulse Resp BP Pulse Ox 98.3 F 71 20 141/86 97 12/10/18 00:06 12/10/18 00:06 12/10/18 00:06 12/10/18 00:06 12/10/18 00:06 - Medications Medications: Current Medications Amlodipine Besylate (Norvasc) 10 mg PO DAILY [facility] Atorvastatin Calcium (Lipitor) 40 mg PO DAILY [facility] Cyanocobalamin (Vitamin B12) 500 mcg PO DAILY [facility] Enoxaparin Sodium (Lovenox) 40 mg SC DAILY [facility]; Protocol Last Admin: 12/09/18 11:42 Dose: 40 mg Folic Acid (Folic Acid) 1 mg PO DAILY [facility] Furosemide (Lasix) 20 mg PO DAILY [facility] Home Med (Vortioxetine Hydrobromide [Trintellix]) 10 mg PO HS [facility] Lactated Ringer's (Lactated Ringer's) 1,000 mls @ 115 mls/hr IV .Q8H42M [facility] Last Admin: 12/09/18 21:17 Dose: 115 mls/hr Piperacillin Sod/Tazobactam (Sod 3.375 gm/ Sodium Chloride) 100 mls @ 100 mls/hr IVPB Q6 [facility]; Protocol Last Admin: 12/09/18 21:14 Dose: 100 mls/hr Loperamide HCl (Imodium) 2 mg PO Q6 PRN PRN Reason: Diarrhea Last Admin: 12/09/18 17:26 Dose: 2 mg Ondansetron HCl (Zofran Inj) 4 mg IVP Q4 PRN PRN Reason: Nausea/Vomiting Last Admin: 12/09/18 18:25 Dose: 4 mg Pantoprazole Sodium (Protonix Ec Tab) 40 mg PO DAILY [facility] Last Admin: 12/09/18 09:20 Dose: 40 mg Simethicone (Mylicon Chew Tab) 80 mg PO Q8 PRN PRN Reason: Flatulence Last Admin: 12/08/18 14:36 Dose: 80 mg Zolpidem Tartrate (Ambien) 5 mg PO HS PRN PRN Reason: Insomnia - Labs Labs: 12/09/18 05:50 12/09/18 05:50 PT 14.5 Seconds (9.8-13.1) H 12/07/18 16:17 INR 1.3 12/07/18 16:17 APTT 32.7 Seconds (25.6-37.1) 12/07/18 16:17 Assessment and Plan (1) Gastroenteritis Status: Acute
--- NOTE | 2018-12-10 02:05 | CP.PCM.PN ---
Subjective - Date & Time of Evaluation Date of Evaluation: 12/09/18 Time of Evaluation: 09:45 - Subjective Subjective: Pt seen and assessed at bedside. Still reports watery stools, continued on IVF hydration. Otherwise, no additional complaints or acute events reported. Subjective Review of Systems: Reviewed and no additional remarkable complaints except occasional abdominal pain and loose, watery stools. Objective Appears: Anxious, Non-toxic, No Acute Distress. Head Exam: NORMAL INSPECTION, normocephalic. Eye Exam: Normal eye inspection, EOMI, PERRLA. Respiratory Exam: NORMAL BREATHING PATTERN, breath sounds clear bilaterally. Cardiovascular Exam: +S1, +S2. RRR. GI & Abdominal Exam: Hyperactive bowel sounds, abdomen is mildly tender on p alpation at hernia site. Neurological Exam: Alert, Awake, Oriented x3. Psychiatric exam: Normal mood. Calm and cooperative. Skin exam: Normal color, warm, dry. Assessment/Impression/Plan: 1.) Abdominal Pain/Enteritis -Pt on Zosyn 3.375 Q6h. -Continue IVF hydration as pt is still at risk for electrolyte loss/imbalance from repeated diarrhea episodes. -Surgery consult input appreciated. -Advance diet as tolerated. -Potassium trending downward; replenish as necessary. -Continue current treatment. -If diarrhea episodes subside, and diet is tolerated well, discharge planning could be initiated. Objective - Vital Signs/Intake and Output Vital Signs (last 24 hours): Temp Pulse Resp BP Pulse Ox 98.3 F 71 20 141/86 97 12/10/18 00:06 12/10/18 00:06 12/10/18 00:06 12/10/18 00:06 12/10/18 00:06 - Medications Medications: Current Medications Amlodipine Besylate (Norvasc) 10 mg PO DAILY [facility] Atorvastatin Calcium (Lipitor) 40 mg PO DAILY [facility] Cyanocobalamin (Vitamin B12) 500 mcg PO DAILY [facility] Enoxaparin Sodium (Lovenox) 40 mg SC DAILY [facility]; Protocol Last Admin: 12/09/18 11:42 Dose: 40 mg Folic Acid (Folic Acid) 1 mg PO DAILY [facility] Furosemide (Lasix) 20 mg PO DAILY [facility] Home Med (Vortioxetine Hydrobromide [Trintellix]) 10 mg PO HS [facility] Lactated Ringer's (Lactated Ringer's) 1,000 mls @ 115 mls/hr IV .Q8H42M [facility] Last Admin: 12/09/18 21:17 Dose: 115 mls/hr Piperacillin Sod/Tazobactam (Sod 3.375 gm/ Sodium Chloride) 100 mls @ 100 mls/hr IVPB Q6 [facility]; Protocol Last Admin: 12/09/18 21:14 Dose: 100 mls/hr Loperamide HCl (Imodium) 2 mg PO Q6 PRN PRN Reason: Diarrhea Last Admin: 12/09/18 17:26 Dose: 2 mg Ondansetron HCl (Zofran Inj) 4 mg IVP Q4 PRN PRN Reason: Nausea/Vomiting Last Admin: 12/09/18 18:25 Dose: 4 mg Pantoprazole Sodium (Protonix Ec Tab) 40 mg PO DAILY [facility] Last Admin: 12/09/18 09:20 Dose: 40 mg Simethicone (Mylicon Chew Tab) 80 mg PO Q8 PRN PRN Reason: Flatulence Last Admin: 12/08/18 14:36 Dose: 80 mg Zolpidem Tartrate (Ambien) 5 mg PO HS PRN PRN Reason: Insomnia - Labs Labs: 12/09/18 05:50 12/09/18 05:50 PT 14.5 Seconds (9.8-13.1) H 12/07/18 16:17 INR 1.3 12/07/18 16:17 APTT 32.7 Seconds (25.6-37.1) 12/07/18 16:17 Assessment and Plan (1) Gastroenteritis Status: Acute
[2018-12-10] MEDS: Piperacillin/Tazobact 3.375 GM in Sodium Chloride 0.9% 100 ML IVPB SCH ×2 (03:58→10:03)
[2018-12-10] MEDS: Pantoprazole 40 mg EC Tab PO SCH (08:16)
[2018-12-10] MEDS: Enoxaparin 40 mg Syringe SC SCH (08:16)
[2018-12-10] MEDS: CYANOCOBALAMIN 500 MCG TAB PO SCH (08:16)
[2018-12-10] MEDS ORDERED: AMLODIPINE PO SCH (09:00)
[2018-12-10] MEDS ORDERED: ATORVASTATIN PO SCH (09:00)
--- NOTE | 2018-12-10 09:05 | CP.PCM.PN ---
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 Patient tolerating soft diet, does not endorse any pain this morning. + loose BM, + flatus. Denies nausea/vomiting/fever/chills. Objective - Vital Signs/Intake and Output Vital Signs (last 24 hours): Temp Pulse Resp BP Pulse Ox 97.5 F L 68 20 133/76 99 12/10/18 07:53 12/10/18 08:16 12/10/18 07:53 12/10/18 08:16 12/10/18 07:53 - Medications Medications: Current Medications Amlodipine Besylate (Norvasc) 10 mg PO DAILY [facility] Last Admin: 12/10/18 08:16 Dose: 10 mg Atorvastatin Calcium (Lipitor) 40 mg PO DAILY [facility] Last Admin: 12/10/18 08:16 Dose: 40 mg Cyanocobalamin (Vitamin B12) 500 mcg PO DAILY [facility] Last Admin: 12/10/18 08:16 Dose: 500 mcg Enoxaparin Sodium (Lovenox) 40 mg SC DAILY [facility]; Protocol Last Admin: 12/10/18 08:16 Dose: 40 mg Folic Acid (Folic Acid) 1 mg PO DAILY [facility] Last Admin: 12/10/18 08:17 Dose: 1 mg Furosemide (Lasix) 20 mg PO DAILY [facility] Last Admin: 12/10/18 08:16 Dose: 20 mg Home Med (Vortioxetine Hydrobromide [Trintellix]) 10 mg PO [facility] Lactated Ringer's (Lactated Ringer's) 1,000 mls @ 115 mls/hr IV .Q8H42M [facility] Last Admin: 12/10/18 00:58 Dose: Not Given Piperacillin Sod/Tazobactam (Sod 3.375 gm/ Sodium Chloride) 100 mls @ 100 mls/hr IVPB Q6 [facility]; Protocol Last Admin: 12/10/18 03:58 Dose: 100 mls/hr Loperamide HCl (Imodium) 2 mg PO Q6 PRN PRN Reason: Diarrhea Last Admin: 12/09/18 17:26 Dose: 2 mg Ondansetron HCl (Zofran Inj) 4 mg IVP Q4 PRN PRN Reason: Nausea/Vomiting Last Admin: 12/09/18 18:25 Dose: 4 mg Pantoprazole Sodium (Protonix Ec Tab) 40 mg PO DAILY [facility] Last Admin: 12/10/18 08:16 Dose: 40 mg Simethicone (Mylicon Chew Tab) 80 mg PO Q8 PRN PRN Reason: Flatulence Last Admin: 12/08/18 14:36 Dose: 80 mg Zolpidem Tartrate (Ambien) 5 mg PO HS PRN PRN Reason: Insomnia - Labs Labs: 12/09/18 05:50 12/09/18 05:50 PT 14.5 Seconds (9.8-13.1) H 12/07/18 16:17 INR 1.3 12/07/18 16:17 APTT 32.7 Seconds (25.6-37.1) 12/07/18 16:17 - Constitutional Appears: Non-toxic, No Acute Distress - Head Exam Head Exam: ATRAUMATIC, NORMOCEPHALIC - Eye Exam Eye Exam: Normal appearance Pupil Exam: NORMAL ACCOMODATION - ENT Exam ENT Exam: Mucous Membranes Moist - Respiratory Exam Respiratory Exam: NORMAL BREATHING PATTERN - Extremities Exam Extremities Exam: Normal Capillary Refill. absent: Calf Tenderness - Back Exam Back Exam: NORMAL INSPECTION - Neurological Exam Neurological Exam: Alert, Awake, Oriented x3 - Psychiatric Exam Psychiatric exam: Normal Affect, Normal Mood - Skin Skin Exam: Warm Assessment and Plan - Assessment and Plan (Free Text) Assessment: 68 year old male with enteritis Plan: - Soft diet - CT Abdomen and Pelvis; Dilated small bowel proximal to the anastamosis - Antibiotics per primary team - Stool studies negative - F/u in office next week for hernia repair surgical planning - No acute surgical intervention at this time, please reconsult as needed - Further recs per Dr. Sharmaine Ridley PGY1
[2018-12-10 09:21] LABS: BASO % 0.9 % (0.0-2.0); EOS # 0.1 K/uL (0.0-0.7); EOS % 3.2 % (0.0-4.0); HEMOGLOBIN 12.8 g/dL (12.0-18.0); LYMPH # 0.4 K/uL (1.0-4.3); LYMPH % 21.8 % (20.0-40.0); MEAN CELL VOLUME 90.8 fl (80.0-94.0); MEAN CORPUSCULAR HEMOGLOBIN 29.3 pg (27.0-31.0); MEAN CORPUSCULAR HGB CONC 32.3 g/dL (33.0-37.0); MEAN PLATELET VOLUME 9.7 fl (7.2-11.7); MONO # 0.3 K/uL (0.0-0.8); MONO % 16.6 % (0.0-10.0); NEUT # 1.1 K/uL (1.8-7.0); NEUT % 57.5 % (50.0-75.0); NRBC % 0.3 % (0.0-0.0); RBC 4.36 Mil/uL (4.40-5.90)
[2018-12-10 10:10] LABS: ALB/GLOB RATIO 1.2 (1.0-2.1); ALBUMIN 3.5 g/dL (3.5-5.0); ALT/SGPT 28 U/L (21-72); AST/SGOT 16 U/L (17-59); BLOOD UREA NITROGEN 17 mg/dl (9-20); CALCIUM 9.2 mg/dL (8.4-10.2); GFR NON-AFRICAN AMERICAN > 60
--- NOTE | 2018-12-10 10:13 | CP.PCM.CON ---
History of Present Illness - History of Present Illness History of Present Illness: This is a 65 yrs old male who was diagnosed with colon cancer with liver metastasis 1 yr ago . he has been on chemotherapy at an outside loation. This time he has severe diarrhea, nausea and vomiting and CY scan showed enterirtis. There was dilatation of the colon just proximal to the anastomosis. He was hydrated , given antibiotics chemotherapy one week agfo. ns is feeling better. He was supposed to go home today,,However his WBC dropped down to 2.2 wi a ANC of 1.1. He had the last dose of chemotherapy one week ago so this is secondary to the chemo. He is to be discharged today., but his PMD was worried about the WBC being low. Past Patient History - Past Medical History & Family History Past Medical History?: Yes - Past Social History Smoking Status: Former Smoker - CARDIAC Hx Cardiac Disorders: Yes Hx Hypercholesterolemia: Yes (dyslipidemia) Hx Hypertension: Yes - PULMONARY Hx Respiratory Disorders: No - NEUROLOGICAL Hx Neurological Disorder: No - HEENT Hx HEENT Problems: Yes Hx Cataracts: Yes (bilateral eyes) - RENAL Hx Chronic Kidney Disease: No - ENDOCRINE/METABOLIC Hx Endocrine Disorders: No - HEMATOLOGICAL/ONCOLOGICAL Hx Blood Disorders: Yes Hx Anemia: Yes Hx Chemotherapy: Yes (last Friday12/03/17) Hx Metastesis: Yes - INTEGUMENTARY Hx Dermatological Problems: No - MUSCULOSKELETAL/RHEUMATOLOGICAL Hx Musculoskeletal Disorders: No Hx Falls: No - GASTROINTESTINAL Hx Gastrointestinal Disorders: No - GENITOURINARY/GYNECOLOGICAL Hx Genitourinary Disorders: No - PSYCHIATRIC Hx Psychophysiologic Disorder: No Hx Substance Use: No - SURGICAL HISTORY Hx Surgeries: Yes Hx Herniorrhaphy: Yes Hx Vascular Access Device: Yes (Port right side chest) Other/Comment: colon tumor removed--november 2017 - ANESTHESIA Hx Anesthesia: Yes Hx Anesthesia Reactions: No Hx Malignant Hyperthermia: No Meds Allergies/Adverse Reactions: Allergies Allergy/AdvReac Type Severity Reaction Status Date / Time No Known Allergies Allergy Verified 12/07/18 15:01 - Medications Medications: Current Medications Amlodipine Besylate (Norvasc) [address] [facility] Last Admin: 12/10/18 08:16 Dose: 10 mg Atorvastatin Calcium (Lipitor) [address] [facility] Last Admin: 12/10/18 08:16 Dose: 40 mg Cyanocobalamin (Vitamin B12) [address] [facility] Last Admin: 12/10/18 08:16 Dose: 500 mcg Cyproheptadine HCl (Periactin) [address] [facility] Enoxaparin Sodium (Lovenox) [address] [facility]; Protocol Last Admin: 12/10/18 08:16 Dose: 40 mg Folic Acid (Folic Acid) [address] [facility] Last Admin: 12/10/18 08:17 Dose: 1 mg Furosemide (Lasix) [address] [facility] Last Admin: 12/10/18 08:16 Dose: 20 mg Home Med (Vortioxetine Hydrobromide [Trintellix]) [address] [facility] Lactated Ringer's (Lactated Ringer's) 1,000 mls @ 115 mls/hr IV .Q8H42M [facility] Last Admin: 12/10/18 10:08 Dose: Not Given Loperamide HCl (Imodium) 2 mg PO Q6 PRN PRN Reason: Diarrhea Last Admin: 12/09/18 17:26 Dose: 2 mg Ondansetron HCl (Zofran Inj) 4 mg IVP Q4 PRN PRN Reason: Nausea/Vomiting Last Admin: 12/09/18 18:25 Dose: 4 mg Pantoprazole Sodium (Protonix Ec Tab) [address] [facility] Last Admin: 12/10/18 08:16 Dose: 40 mg Simethicone (Mylicon Chew Tab) 80 mg PO Q8 PRN PRN Reason: Flatulence Last Admin: 12/08/18 14:36 Dose: 80 mg Zolpidem Tartrate (Ambien) 5 mg PO HS PRN PRN Reason: Insomnia Results - Vital Signs Recent Vital Signs: Last Vital Signs Temp 97.5 F L 12/10/18 07:53 Pulse 68 12/10/18 08:16 Resp 20 12/10/18 07:53 BP 133/76 12/10/18 08:16 Pulse Ox 99 12/10/18 07:53 - Labs Result Diagrams: 12/10/18 04:00 12/10/18 04:00 Labs: Laboratory Results - last 24 hr 12/10/18 04:00 WBC 2.0 L* RBC 4.36 L Hgb 12.8 Hct 39.6 MCV 90.8 MCH 29.3 MCHC 32.3 L RDW 19.0 H Plt Count 137 MPV 9.7 Neut % (Auto) 57.5 Lymph % (Auto) 21.8 [place] % (Auto) 16.6 H Eos % (Auto) 3.2 Baso % (Auto) 0.9 Neut # (Auto) 1.1 L Lymph # (Auto) 0.4 L [place] # (Auto) 0.3 Eos # (Auto) 0.1 Baso # (Auto) 0.0 Assessment & Plan - Assessment and Plan (Free Text) Assessment: Impression neutropenia secondary to chemotherapy and infection, now recovering. Plan: Plan; pt is being discharged today. Will give one dose of granix prior to discharge. - Date & Time Date: 12/10/18 Time: 10:26
[2018-12-10] MEDS: Dextrose 5%/0.45% NS 1,000 ML IV SCH (10:50)
[2018-12-10] MEDS ORDERED: Potassium Chloride 20 mEq ER Tab PO ONE (19:30)
[2018-12-11] MEDS: Dextrose 5%/0.45% NS 1,000 ML IV SCH (00:45)
[2018-12-11 06:25] LABS: BASO % 0.5 % (0.0-2.0); EOS # 0.1 K/uL (0.0-0.7); EOS % 3.1 % (0.0-4.0); HEMOGLOBIN 11.6 g/dL (12.0-18.0); LYMPH # 0.7 K/uL (1.0-4.3); LYMPH % 18.4 % (20.0-40.0); MEAN CORPUSCULAR HEMOGLOBIN 29.8 pg (27.0-31.0); MEAN CORPUSCULAR HGB CONC 33.1 g/dL (33.0-37.0); MEAN PLATELET VOLUME 9.8 fl (7.2-11.7); MONO # 0.5 K/uL (0.0-0.8); MONO % 12.7 % (0.0-10.0); NEUT # 2.6 K/uL (1.8-7.0); NEUT % 65.3 % (50.0-75.0); NRBC % 0.1 % (0.0-0.0); RBC 3.88 Mil/uL (4.40-5.90); RED CELL DISTRIBUTION WIDTH 18.2 % (11.5-14.5)
[2018-12-11 06:50] LABS: BLOOD UREA NITROGEN 13 mg/dl (9-20); CALCIUM 8.9 mg/dL (8.4-10.2); GFR NON-AFRICAN AMERICAN > 60
[2018-12-11 07:55] VITALS: BP 121/73; PULSE 65; RESP 19; TEMP 98; O2SAT 95
--- NOTE | 2018-12-11 08:05 | CP.PCM.PN ---
Subjective - Date & Time of Evaluation Date of Evaluation: 12/11/18 Time of Evaluation: 08:04 - Subjective Subjective: Pt does not have any nausea ,vomiting or abdominal pain. He received 1 dose of gramnix and today his WBC is up to 4.0 with an ANC of2.6. He was to be discharged, but is hypokalemic and needs the Potassium to be corrected prior to discharge. Objective - Vital Signs/Intake and Output Vital Signs (last 24 hours): Temp Pulse Resp BP Pulse Ox 98.0 F 65 19 121/73 95 12/11/18 07:54 12/11/18 07:54 12/11/18 07:54 12/11/18 07:54 12/11/18 07:54 - Medications Medications: Current Medications Amlodipine Besylate (Norvasc) 10 mg PO DAILY [facility] Last Admin: 12/10/18 08:16 Dose: 10 mg Atorvastatin Calcium (Lipitor) 40 mg PO DAILY [facility] Last Admin: 12/10/18 08:16 Dose: 40 mg Cyanocobalamin (Vitamin B12) 500 mcg PO DAILY [facility] Last Admin: 12/10/18 08:16 Dose: 500 mcg Cyproheptadine HCl (Periactin) 4 mg PO DAILY [facility] Last Admin: 12/10/18 12:51 Dose: 4 mg Enoxaparin Sodium (Lovenox) 40 mg SC DAILY [facility]; Protocol Last Admin: 12/10/18 08:16 Dose: 40 mg Folic Acid (Folic Acid) 1 mg PO DAILY [facility] Last Admin: 12/10/18 08:17 Dose: 1 mg Furosemide (Lasix) 20 mg PO DAILY [facility] Last Admin: 12/10/18 08:16 Dose: 20 mg Home Med (Vortioxetine Hydrobromide [Trintellix]) 10 mg PO HS [facility] Last Admin: 12/10/18 21:52 Dose: 10 mg Dextrose/Sodium Chloride (Dextrose 5%/0.45% Ns 1000 Ml) 1,000 mls @ 75 mls/hr IV .[id number] [facility] Stop: 12/11/18 10:08 Last Admin: 12/11/18 00:45 Dose: Not Given Loperamide HCl (Imodium) 2 mg PO Q6 PRN PRN Reason: Diarrhea Last Admin: 12/11/18 06:36 Dose: 2 mg Metronidazole (Flagyl) 500 mg PO Q8 [facility]; Protocol Last Admin: 12/11/18 00:50 Dose: 500 mg Ondansetron HCl (Zofran Inj) 4 mg IVP Q4 PRN PRN Reason: Nausea/Vomiting Last Admin: 12/10/18 21:58 Dose: 4 mg Pantoprazole Sodium (Protonix Ec Tab) 40 mg PO DAILY [facility] Last Admin: 12/10/18 08:16 Dose: 40 mg Simethicone (Mylicon Chew Tab) 80 mg PO Q8 PRN PRN Reason: Flatulence Last Admin: 12/08/18 14:36 Dose: 80 mg Zolpidem Tartrate (Ambien) 5 mg PO HS PRN PRN Reason: Insomnia Last Admin: 12/10/18 21:58 Dose: 5 mg - Labs Labs: 12/11/18 04:45 12/11/18 04:45 PT 14.5 Seconds (9.8-13.1) H 12/07/18 16:17 INR 1.3 12/07/18 16:17 APTT 32.7 Seconds (25.6-37.1) 12/07/18 16:17
[2018-12-11] MEDS ORDERED: Potassium Chloride 20 mEq ER Tab PO ONE (08:20)
[2018-12-11] MEDS: Enoxaparin 40 mg Syringe SC SCH (08:49)
[2018-12-11] MEDS: Pantoprazole 40 mg EC Tab PO SCH (08:50)
[2018-12-11] MEDS: CYANOCOBALAMIN 500 MCG TAB PO SCH (08:50)
[2018-12-11] MEDS: Potassium Chloride 20 mEq 100 ML IVPB SCH ×2 (10:05→12:16)
== END 2018-12-11 16:29 | disposition home or self-care (01) | DRG 392 ==
LOC: H.ER 14:59 → H.ERHOLD 18:30 → H.MEDSURG1 22:28
PROVIDERS: ADMIT Family Medicine; ATTEND Family Medicine
DX: K52.89 Other specified noninfective gastroenteritis and colitis (principal); C78.7 Secondary malignant neoplasm of liver and intrahepatic bile duct; C78.00 Secondary malignant neoplasm of unspecified lung; D70.1 Agranulocytosis secondary to cancer chemotherapy; T45.1X5A Adverse effect of antineoplastic and immunosuppressive drugs, initial encounter; E87.6 Hypokalemia; Z85.038 Personal history of other malignant neoplasm of large intestine; I10 Essential (primary) hypertension; E78.00 Pure hypercholesterolemia, unspecified; E78.5 Hyperlipidemia, unspecified; Z92.21 Personal history of antineoplastic chemotherapy; Z90.49 Acquired absence of other specified parts of digestive tract; Z87.891 Personal history of nicotine dependence

== ENCOUNTER 2018-12-31 09:08 | Observation (INO) | payer MEDICARE ==
[2018-12-25 12:05] VITALS: BMI 25.7
[2018-12-31] MEDS ORDERED: Lactated Ringer's 1,000 ML IV ONE ×2 (09:48→16:42)
--- NOTE | 2018-12-31 09:50 | CP.SDSHP ---
Same Day Surgery H & P - History Proposed Procedure: Repair of incisional hernia Pre-Op Diagnosis: incisional hernia - Previous Medical/Surgical History Cardiac: Hypertension Endocrine/Metabolic: Other (HLD) Pain: 0. No Pain Previous Surgical History: colon surgery, 2 surgeries, 2 eye surgeries - Allergies Allergies: Allergies No Known Allergies Allergy (Verified 12/31/18 09:21) - Current Medications Current Medications: does not recall name of meds but take 2 for HTN and 1 for HLD - Physical Exam General Appearance: NAD, AAOx3 Vital Signs: Vital Signs 12/31/18 12/31/18 09:32 09:40 Temperature 97.8 F Pulse Rate 60 60 Respiratory 18 Rate Blood Pressure 153/79 H O2 Sat by Pulse 100 Oximetry Mental Status: Alert & Oriented x3 Neuro: WNL Heart: WNL Lungs: WNL GI: WNL - {Optional Preform as Required} Abdomen: Other (incisional hernia from previous colon surgery, at the level of umbilicus left of midline) - Impression Impression: 68M with PMH of colon surgery, HTN and HLD presents for Repair of incisional hernia Pt. Evaluated Today:Candidate for Anesthesia & Procedure: Yes - Date & Time Date: 12/31/18 Time: 09:50 Short Stay Discharge - Short Stay Discharge Admitting Diagnosis/Reason for Visit: K43.2 Disposition: HOME/ ROUTINE Medications: oxyCODONE/Acetaminophen [Percocet 5/325 mg Tab] 1 tab PO Q4 PRN #20 tab PRN Reason: Pain, Moderate (4-7) Referrals: Anthony Schmid MD [Medical Doctor] - Follow-up: f/u 1 week in [facility] ED Additional Instructions (Diet, Activity): Regular diet Take percocet as prescribed for pain No heavy lifting for 4 weeks May shower Keep area clean and dry f/u in 1 week (01/07) in [facility] Emergency department Call Dr. Schmid's office for any issues Dieta regular Jami percocet autumn se prescribe para el dolor. No levantar objetos pesados ??eve 4 semanas Puede ducharse Mantenga el roverto limpia y seca f / u en 1 semana (01/07) en el departamento de emergencia de [facility] Llame a la oficina del Dr. Schmid para cualquier problema. Progress Note/Discharge Note with Instructions: 68 M s/p incisional hernia repari with mesh Patient stable for discharge after SDS criteria is met and tolerating diet.
[2018-12-31] MEDS ORDERED: Rocuronium 10 mg/ml (5 ml) ONE ×2 (11:01→14:27)
[2018-12-31] MEDS ORDERED: Etomidate 20 mg/10ml Inj IV ONE (11:01)
[2018-12-31] MEDS ORDERED: Propofol 10 mg/ml Inj (20 ML) ONE (11:01)
[2018-12-31] MEDS ORDERED: Lidocaine 4% (Laryng-O-Jet) Kit MM ONE (11:04)
[2018-12-31] MEDS ORDERED: Phenylephrine 10 mg/ml Inj ONE (11:05)
[2018-12-31] MEDS ORDERED: Dexamethasone 4 mg/1 ml ONE (11:06)
[2018-12-31] MEDS ORDERED: Succinylcholine Chloride 20 mg/ml Syr (5 ml) IV ONE (14:05)
[2018-12-31] MEDS ORDERED: Bupivacaine HCl 0.5% PF (10 ml) Inj ONE (14:30)
[2018-12-31] MEDS ORDERED: Lidocaine 1% Inj (20ml) ONE (14:31)
[2018-12-31] MEDS ORDERED: Neostigmine 1:1000 (1 mg/ml) Inj ONE (15:50)
--- NOTE | 2018-12-31 16:53 | PCM.SURG1 ---
Surgeon's Initial Post Op Note - Surgeon's Notes Surgeon: Dr. Schmid Station Cashier: Corinne PGY2 Type of Anesthesia: General Endo, Local Anesthesia Administered By: Dr. Weiss Pre-Operative Diagnosis: Incarcerated Incisional Hernia Operative Findings: Incarcerated Incisional Hernia Post-Operative Diagnosis: Incarcerated Incisional Hernia Operation Performed: Repair of Incarcerated Incisional Hernia with Strattice mesh Specimen/Specimens Removed: N/A Estimated Blood Loss: EBL {In ML}: 10 Blood Products Given: N/A Drains Used: No Drains Post-Op Condition: Good Date of Surgery/Procedure: 12/31/18 Time of Surgery/Procedure: 16:54
[2018-12-31] MEDS ORDERED: Lactated Ringer's 1,000 ML IV SCH (17:00)
--- NOTE | 2018-12-31 17:02 | PCM.OP ---
Operative Report - Operative Report Date of Surgery/Procedure: 12/31/18 Time of Surgery/Procedure: 16:46 Surgeon: Dr. Schmid Ux Ui Designer: Corinne FAYY2 Anesthesia/Sedation: General Endo Dr. Weiss Pre-Operative Diagnosis: incarcerated incisional hernia Post-Operative Diagnosis: incarcerated incisional hernia Indication for Surgery: incarcerated incisional hernia Operative Findings: incarcerated incisional hernia Procedure/Operation Description: Procedure: Repair of incarcerated incisional hernia 68 M with PMH of s/p colon resection presents for Repair of incarcerated incisional hernia. Consent was obtained before the procedure. Risks/Benefits were discussed with patient and family. They verbalized understanding and agreement to proceed with the procedure. Patient was brought to the operating room and placed in the supine position. SCDs were applied to bilateral lower extremities. General endotracheal anesthesia was administered for the procedure. The patients abdomen was prepped and draped in the usual sterile manner utilizing Chlorhexadine solution and Ioban. Timeout was performed. OGT was placed to decompress the stomach. A ventral incisional hernia was quite obvious with incarceration at the level of the umbilicus and left of the midline. The old curvelinear scar was used for the repair. #10 blade was used to make incision over the old scar. Hemostasis was achieved with electrocautery. Dissection continued through the subcutaneous tissue down to the fascia where the hernia was located. The fascia around the entire hernia was free up and edges cleaned. The hernia was moderate in size and contained a loop of small bowel. The hernia was reduced back into the abdomen through the hernia defect. The abdominal contents were inspected and there were no signs of vascular compromise. All bowel was pink with peristalsis. Using electrocautery, fascial flaps in all direction were created to ensure enough fascia was present for adequate repair. A 10 x 16 cm Strattice mesh was chosen for the repair. The mesh was then cut to the appropriate size. The mesh was then placed in an underlay position. The fascia was attached to the anterior portion of the Strattice mesh circumferentially utilizing 0-PDS suture on a CT1 needle. These were placed in an interrupted fashion. With this accomplished, the mesh was noted to be appropriately fixated to the anterior abdominal wall without tension. The wound and mesh were then irrigated with normal saline solution and aspirated until clear. 15 fr Marivel drain was placed above the mesh and below the anterior fascia. The anterior fascia was then closed utilizing a running 3-0 Vicryl suture. A second 15 fr marivel drain was placed above the anterior fascia. Subcutaneous tissue were then approximated with interrupted 3-0 Vicryl Suture. Skin edges were approximated using a running 4-0 Monocryl suture. DermaBond was placed over the incision as sterile dressing. 25 mL Mixture of 0.25 Marcaine and 1% lidocaine were given at the end of the case as local anesthetic. The patient tolerated the procedure well with no apparent complications. All nursing counts were correct and confirmed. EBL was 10cc. Patient was transferred to PACU for recovery. Estimated Blood Loss: 10 cc Complications: None Discharge & Condition: good, patient transferred to PACU for recovery
[2018-12-31] MEDS: HYDROmorphone 0.5 mg/0.5 ml ISec IVP PRN ×3 (17:10→17:40)
[2018-12-31] MEDS: Oxycodone/Acetaminophen 5/325 mg Tab PO PRN (22:51)
[2019-01-01] MEDS: Oxycodone/Acetaminophen 5/325 mg Tab PO PRN ×2 (04:04→11:27)
[2019-01-01 08:00] VITALS: BP 120/84; PULSE 88; RESP 20; TEMP 97.9; O2SAT 93
[2019-01-01] MEDS ORDERED: Ergocalciferol 50,000 Intl Units Cap PO SCH (09:00)
[2019-01-01] MEDS ORDERED: Multivitamin With Minerals Tab PO SCH (09:00)
[2019-01-01] MEDS ORDERED: Pantoprazole 40 mg EC Tab PO SCH (09:00)
[2019-01-01] MEDS ORDERED: Patient's Own Med (Dutasteride [Avodart] 0.5 MG) PO SCH (09:00)
[2019-01-01] MEDS ORDERED: CYANOCOBALAMIN 500 MCG TAB PO SCH (09:00)
[2019-01-01] MEDS ORDERED: Metoprolol Succinate 25 mg XL Tab PO SCH (09:00)
--- NOTE | 2019-01-01 13:27 | CP.PCM.PN ---
Subjective - Date & Time of Evaluation Date of Evaluation: 01/01/19 Time of Evaluation: 13:25 - Subjective Subjective: Surgery Progress Note for Dr. Schmid 68M seen and evaluated at bedside this morning. Patient s/p hernia repair POD1 with post-op urinary retention. Patient was able to void this afternoon after given 2 doses Flomax. Denies f/c, n/v/d, SOB, CP. Objective - Vital Signs/Intake and Output Vital Signs (last 24 hours): Temp Pulse Resp BP Pulse Ox 97.9 F 88 20 120/84 93 L 01/01/19 07:59 01/01/19 08:55 01/01/19 07:59 01/01/19 08:55 01/01/19 07:59 Intake and Output: 01/01/19 01/01/19 06:59 18:59 Output Total 550 Balance -550 - Medications Medications: Current Medications Amlodipine Besylate (Norvasc) 10 mg PO DAILY [facility] Last Admin: 01/01/19 08:54 Dose: 10 mg Atorvastatin Calcium (Lipitor) 40 mg PO DAILY [facility] Last Admin: 01/01/19 08:54 Dose: 40 mg Cyanocobalamin (Vitamin B12) 500 mcg PO DAILY [facility] Last Admin: 01/01/19 08:55 Dose: 500 mcg Cyproheptadine HCl (Periactin) 4 mg PO DAILY [facility] Last Admin: 01/01/19 08:55 Dose: 4 mg Ergocalciferol (Drisdol 50,000 Intl Units Cap) 1 cap PO QWK [facility] Folic Acid (Folic Acid) 1 mg PO DAILY [facility] Last Admin: 01/01/19 08:54 Dose: 1 mg Furosemide (Lasix) 20 mg PO DAILY [facility] Last Admin: 01/01/19 08:54 Dose: 20 mg Home Med (Dutasteride [Avodart]) 0.5 mg PO DAILY [facility] Home Med (Vortioxetine Hydrobromide [Trintellix]) 10 mg PO HS [facility] Megestrol Acetate (Megace) 40 mg PO DAILY [facility] Last Admin: 01/01/19 08:54 Dose: 40 mg Metoprolol Succinate (Toprol Xl) 25 mg PO DAILY [facility] Last Admin: 01/01/19 08:55 Dose: 25 mg Multivitamins/Minerals (Therapeutic-M Tab) 1 tab PO DAILY [facility] Last Admin: 01/01/19 08:55 Dose: 1 tab Ondansetron HCl (Zofran Inj) 4 mg IVP Q4 PRN PRN Reason: Nausea/Vomiting Last Admin: 01/01/19 09:04 Dose: 4 mg Oxycodone/Acetaminophen (Percocet 5/325 Mg Tab) 1 tab PO Q4 PRN PRN Reason: Pain, moderate (4-7) Stop: 01/03/19 17:02 Last Admin: 01/01/19 11:27 Dose: 1 tab Pantoprazole Sodium (Protonix Ec Tab) 40 mg PO DAILY [facility] Last Admin: 01/01/19 08:53 Dose: 40 mg Tamsulosin HCl (Flomax) 0.4 mg PO DAILY [facility] Last Admin: 01/01/19 08:53 Dose: 0.4 mg Zolpidem Tartrate (Ambien) 5 mg PO HS [facility] - Constitutional Appears: Well, Non-toxic, No Acute Distress - Head Exam Head Exam: ATRAUMATIC, NORMAL INSPECTION, NORMOCEPHALIC - Eye Exam Eye Exam: EOMI - ENT Exam ENT Exam: Mucous Membranes Moist - Respiratory Exam Respiratory Exam: NORMAL BREATHING PATTERN. absent: Wheezes, Respiratory Distress - Cardiovascular Exam Cardiovascular Exam: REGULAR RHYTHM, +S1, +S2. absent: Murmur - GI/Abdominal Exam GI & Abdominal Exam: Soft, Normal Bowel Sounds. absent: Tenderness - Neurological Exam Neurological Exam: Alert, Awake, Oriented x3 - Psychiatric Exam Psychiatric exam: Normal Affect, Normal Mood - Skin Skin Exam: Dry, Intact, Normal Color, Warm Assessment and Plan - Assessment and Plan (Free Text) Assessment: 68M s/p hernia repair POD1 Plan: Patient voiding Tolerating diet Pain controlled D/w attending Dr Schmid - Patient will be discharged today Enrrique Good PGY1
--- NOTE | 2019-01-01 13:32 | CP.PCM.DIS ---
Provider - Provider Date of Admission: 01/01/19 02:52 Attending physician: Anthony Schmid MD Time Spent in preparation of Discharge (in minutes): 60 Hospital Course - Hospital Course Hospital Course: 68 year old male who came to [facility] for incisional hernia repair with mesh with Dr. Schmid. Patient tolerated procedure. Post-operatively patient experienced urinary retention. Patient was straight catheterized and continued to retain urine. He was admitted for observation. Patient was given 2 doses of Flomax and was able to void without difficulty. Patient pain controlled, tolerated diet, ambulated. Patient cleared for discharge and instructed to follow up with Dr. Schmid. Patient verbalized understanding of treatment plan. All questions and concerns addressed. Above is a brief summary, for a detailed encounter please refer to medical records. Discharge Exam - Head Exam Head Exam: ATRAUMATIC, NORMAL INSPECTION, NORMOCEPHALIC - Eye Exam Eye Exam: EOMI - Respiratory Exam Respiratory Exam: NORMAL BREATHING PATTERN. absent: Wheezes, Respiratory Distress - Cardiovascular Exam Cardiovascular Exam: REGULAR RHYTHM, +S1, +S2 - GI/Abdominal Exam GI & Abdominal Exam: Normal Bowel Sounds, Soft. absent: Tenderness - Back Exam Back exam: absent: CVA tenderness (L), CVA tenderness (R) - Neurological Exam Neurological exam: Alert, Oriented x3 - Psychiatric Exam Psychiatric exam: Normal Affect, Normal Mood - Skin Skin Exam: Dry, Intact, Normal Color, Warm Additional comments: incision site c/d/i Discharge Plan - Discharge Medications Prescriptions: oxyCODONE/Acetaminophen [Percocet 5/325 mg Tab] 1 tab PO Q4 PRN #20 tab PRN Reason: Pain, Moderate (4-7) - Follow Up Plan Condition: GOOD Disposition: HOME/ ROUTINE Instructions: Hernia Repair (DC) Additional Instructions: Regular diet Take percocet as prescribed for pain No heavy lifting for 4 weeks May shower Keep area clean and dry f/u in 1 week (01/07) in [facility] Emergency department Call Dr. Schmid's office for any issues Dieta regular Jami percocet autumn se prescribe para el dolor. No levantar objetos pesados ??eve 4 semanas Puede ducharse Mantenga el roverto limpia y seca f / u en 1 semana (jueves 5/23) en el departamento de emergencia de [facility] Llame a la oficina del Dr. Schmid para cualquier problema. Referrals: Jason Mcknight MD [Family Provider] - Anthony Schmid MD [Medical Doctor] -
== END 2019-01-01 16:47 | disposition home health service (06) ==
LOC: H.OPSURG 09:08 → H.MEDSURG1 20:17 → H.OPSURG 01-01 02:52
PROVIDERS: ADMIT Surgery; ATTEND Surgery
DX: K43.0 Incisional hernia with obstruction, without gangrene (principal); I10 Essential (primary) hypertension; E78.5 Hyperlipidemia, unspecified; R33.9 Retention of urine, unspecified
CPT/HCPCS: 49561; 49568; 96374; 96376; G0378; J0690; J1170; J2001; J2370; J2405; J2704; J2710; J3010; J7030; J7120; Q4130

== ENCOUNTER 2019-01-07 08:47 | Emergency (ER) | payer MEDICARE ==
[2019-01-07 08:57] VITALS: O2SAT 97; BMI 24.3
--- NOTE | 2019-01-07 10:02 | ED PDOC ---
HPI: General Adult Time Seen by Provider: 01/07/19 09:05 Chief Complaint (Nursing): Wound Check Chief Complaint (Provider): Wound Check History Per: Patient, Family History/Exam Limitations: no limitations Onset/Duration Of Symptoms: Days Current Symptoms Are (Timing): Still Present Additional Complaint(s): 68 y/o male with a PMHx of HTN and colon CA presents to the ED accompanied by family for evaluation s/p hernia repair performed by Dr. Schmid . Daughter reports patient had a hernia repair on 12/31/2018 and was instructed to follow up in the ED for evaluation of the surgical scar. Patient denies any pain at this time. Daughter notes patient had one episode of vomiting. Patient denies fever, change in urination and bowel movements. Patient notes last bowel m ovement was at 6:30. PMD: Jason Mcknight Surgeon: Anthony Schmid. Past Medical History Reviewed: Historical Data, Nursing Documentation, Vital Signs Vital Signs: Last Vital Signs Temp 97 F L 01/07/19 08:56 Pulse 77 01/07/19 08:56 Resp 18 01/07/19 08:56 BP 155/93 H 01/07/19 08:56 Pulse Ox 97 01/07/19 08:56 Primary Care Provider: Anthony Schmid - Medical History PMH: Anemia, HTN, Hypercholesterolemia, Malignancy (Colon w liver mets) Denies: Chronic Kidney Disease Other PMH: Colon CA - Surgical History Surgical History: Hernia Repair Other surgeries: Colon CA surgery - Family History Family History: States: Hypertension - Living Arrangements Living Arrangements: With Family - Social History Current smoker - smoking cessation education provided: No Alcohol: None Drugs: Denies - Immunization History Hx Tetanus Toxoid Vaccination: No Hx Influenza Vaccination: Yes Hx Pneumococcal Vaccination: No - Home Medications Home Medications: Ambulatory Orders Medication Instructions Recorded Cyanocobalamin [Vitamin B12] 500 mcg PO DAILY 12/01/17 Zolpidem Tartrate [Ambien] 10 mg PO HS 12/01/17 Amlodipine/Atorvastatin [Caduet 10 1 tab PO DAILY 12/07/18 mg-40 mg Tablet] Cyproheptadine [Periactin] 4 mg PO DAILY 12/07/18 Ergocalciferol (Vitamin D2) 50,000 unit PO QWK 12/07/18 [Vitamin D2] Folic Acid 1 mg PO DAILY 12/07/18 Furosemide [Lasix] 20 mg PO DAILY 12/07/18 Multivitamin [Multi-Vitamin Daily] 1 tab PO DAILY 12/07/18 Ondansetron [Zofran Tab] 8 mg PO Q8 PRN 12/07/18 Vortioxetine Hydrobromide 10 mg PO HS 12/07/18 [Trintellix] Pantoprazole [Protonix EC Tab] 40 mg PO DAILY #30 ect 12/11/18 Atorvastatin [Lipitor] 20 mg PO DAILY 12/31/18 Dutasteride [Avodart] 0.5 mg PO DAILY 12/31/18 Megestrol [Megace] 40 mg PO DAILY 12/31/18 Metoprolol Succinate [Toprol Xl] 25 mg PO DAILY 12/31/18 Tamsulosin HCl 0.4 mg PO DAILY 12/31/18 oxyCODONE/Acetaminophen [Percocet 1 tab PO Q4 PRN #20 tab 12/31/18 5/325 mg Tab] - Allergies Allergies/Adverse Reactions: Allergies Allergy/AdvReac Type Severity Reaction Status Date / Time No Known Allergies Allergy Verified 12/31/18 09:21 Review of Systems ROS Statement: Except As Marked, All Systems Reviewed And Found Negative Constitutional: Positive for: Other (post-op evaluation) Gastrointestinal: Positive for: Vomiting Physical Exam - Reviewed Nursing Documentation Reviewed: Yes Vital Signs Reviewed: Yes - Physical Exam Appears: Positive for: No Acute Distress Head Exam: Positive for: ATRAUMATIC, NORMOCEPHALIC Skin: Positive for: Normal Color, Warm, Dry Eye Exam: Positive for: Normal appearance, EOMI, PERRL ENT: Positive for: Normal ENT Inspection Neck: Positive for: Normal, Painless ROM, Supple Cardiovascular/Chest: Positive for: Regular Rate, Rhythm. Negative for: Murmur Respiratory: Positive for: Normal Breath Sounds. Negative for: Respiratory Distress Gastrointestinal/Abdominal: Positive for: Bowel Sounds, Soft, Other (Two PATRICA tubes (on the right and lower left abdomen) draining small amount (1-2 cc) serousanginuous fluid. Horizontal scar noted between the two tubes.). Negative for: Tenderness Extremity: Positive for: Normal ROM. Negative for: Deformity Neurological/Psych: Positive for: Awake, Alert, Oriented (x3). Negative for: Motor/Sensory Deficits - ECG O2 Sat by Pulse Oximetry: 97 (RA) Pulse Ox Interpretation: Normal Medical Decision Making Medical Decision Making: Time: 936 Impression: Post-Op Evaluation Plan: -- Call placed to Dr. Schmid's cell phone twice to evaluate the patient in the ED. Time: 939 -- Call placed to Dr. Schmid's office. No answer Time: 1006 -- Call placed again to Dr. Schmid's office. Answered by Frances who [place] Dr[place] Sch[place] and will email him for further questions. Time: 1033 --Call for surgical lead was placed. Time: 1104 -- Spoke to surgical lead who states Dr. Grullon is covering for Dr. Schmid who will come to the ER to remove drain. Time: [id number] -- vice president corporate communications took out drains. (see note) Patient to be discharged home with instructions to follow up with Dr. Schmid for further management. Patient instructed to return if symptoms worsen or if he develops any new symptoms. Scribe Attestation: Documented by De Trevino, acting as a scribe forRaudel Nunez MD. Provider Scribe Attestation: All medical record entries made by the Scribe were at my direction and personally dictated by me. I have reviewed the chart and agree that the record accurately reflects my personal performance of the history, physical exam, medical decision making, and the department course for this patient. I have also personally directed, reviewed, and agree with the discharge instructions and disposition. Disposition - Clinical Impression Clinical Impression: Visit for wound check - Patient ED Disposition Is Patient to be Admitted: No Counseled Patient/Family Regarding: Studies Performed, Diagnosis, Need For Followup - Disposition Referrals: [facility] [employer] [facility] [Outside] Anthony Schmid MD [Medical Doctor] - Disposition: Routine/Home Disposition Time: 12:00 Condition: IMPROVED Additional Instructions: follow up with Dr Schmid in 1 week return to the ED with any worsening or concerning symptoms Instructions: Surgical Wound (DC) Forms: [facility] (Kosovan), [facility] (Croatian) Print Language: GREENLANDIC
--- NOTE | 2019-01-07 13:21 | CP.PCM.CON ---
History of Present Illness - History of Present Illness History of Present Illness: General Surgery Note for Dr. Schmid 68 M who is s/p incisional hernia repair POD#6 presents to ED for evaluation of incision and drain removal. Patient states that he has had minimla output from drains over last few days. Patient reports normal BM, urination, and appetite. He states pain is controlled. Incision clean dry and intact with dermabond still in place. Drains were removed at bedside. Past Patient History - Past Medical History & Family History Past Medical History?: Yes - Past Social History Smoking Status: Never Smoked - CARDIAC Hx Hypercholesterolemia: Yes Hx Hypertension: Yes - PULMONARY Hx Respiratory Disorders: No - NEUROLOGICAL Hx Neurological Disorder: No - HEENT Hx Cataracts: Yes (bilateral eyes) - RENAL Hx Chronic Kidney Disease: No - ENDOCRINE/METABOLIC Hx Endocrine Disorders: No - HEMATOLOGICAL/ONCOLOGICAL Hx Anemia: Yes - INTEGUMENTARY Hx Dermatological Problems: No - MUSCULOSKELETAL/RHEUMATOLOGICAL Hx Musculoskeletal Disorders: No Hx Falls: No - GASTROINTESTINAL Hx Gastrointestinal Disorders: No Other/Comment: ca-colon - GENITOURINARY/GYNECOLOGICAL Hx Genitourinary Disorders: Yes Hx Prostate Problems: Yes - PSYCHIATRIC Hx Emotional Abuse: No Hx Physical Abuse: No Hx Substance Use: No - SURGICAL HISTORY Hx Surgeries: Yes Hx Cataract Extraction: Yes (jomar cataracts) Hx Eye Surgery: Yes Hx Herniorrhaphy: Yes Hx Vascular Access Device: Yes (Port right side chest) Other/Comment: INSERTION OF LIFEPORT-R SSIDE;R HERNIA REPAIR;COLON [id number]/ENDOSCOPY - ANESTHESIA Hx Anesthesia: Yes Hx Anesthesia Reactions: No Hx Malignant Hyperthermia: No Meds Allergies/Adverse Reactions: Allergies Allergy/AdvReac Type Severity Reaction Status Date / Time No Known Allergies Allergy Verified 12/31/18 09:21 Results - Vital Signs Recent Vital Signs: Last Vital Signs Temp 97 F L 01/07/19 08:56 Pulse 77 01/07/19 08:56 Resp 18 01/07/19 08:56 BP 155/93 H 01/07/19 08:56 Pulse Ox 97 01/07/19 11:07
[2019-01-07 13:52] VITALS: BP 140/87; PULSE 72; RESP 16; TEMP 97.2
== END 2019-01-07 13:40 | disposition home or self-care (01) ==
LOC: H.ER 08:47
DX: Z48.01 Encounter for change or removal of surgical wound dressing (principal); Z85.038 Personal history of other malignant neoplasm of large intestine; I10 Essential (primary) hypertension; E78.00 Pure hypercholesterolemia, unspecified